=== PATIENT | female | born 1935 | race Two or more races ===

== ENCOUNTER 2018-04-24 13:12 | Outpatient (CLI) | payer MEDICARE, BC | END 2018-04-24 23:59 | disposition home health service (06) | LOC: WOU 13:12 | PROVIDERS: ATTEND Podiatrist Foot & Ankle Surgery | DX: L89.894 Pressure ulcer of other site, stage 4 (principal); L89.613 Pressure ulcer of right heel, stage 3; Z87.891 Personal history of nicotine dependence; G35 Multiple sclerosis; Z79.899 Other long term (current) drug therapy; M79.671 Pain in right foot; I70.201 Unspecified atherosclerosis of native arteries of extremities, right leg | CPT/HCPCS: 11042; 11043; 87070-TC; 87186-TC; A6402; A6407; J3490; Z7610 ==

== ENCOUNTER 2018-04-30 12:21 | Outpatient (CLI) | payer MEDICARE, BC | END 2018-04-30 23:59 | disposition home or self-care (01) | LOC: WOU 12:21 | PROVIDERS: ATTEND Podiatrist Foot & Ankle Surgery | DX: I82.432 Acute embolism and thrombosis of left popliteal vein (principal); I82.442 Acute embolism and thrombosis of left tibial vein; I70.202 Unspecified atherosclerosis of native arteries of extremities, left leg | CPT/HCPCS: 93970-TC; A6402 ==

== ENCOUNTER 2018-04-30 14:18 | Emergency (ER) | payer MEDICARE, BC ==
[~2018-04-30] VITALS: Ht 152.4 cm; Wt 69.9 kg
--- NOTE | 2018-04-30 14:25 | NUR ---
BIB FAMILY SENT FROM CLINIC FOR SUBACUTE DVT ON ULTRASOUND ON L LOWER LEG. SKIN IS WARM AND NON DIAPHORETIC. PLACED ON THE MONITOR. AWAITING MD FOR EVAL.
--- NOTE | 2018-04-30 14:30 | NUR ---
DR WHITING AT BS FOR EVAL.
--- NOTE | 2018-04-30 14:41 | NUR ---
PAGED DR. MULLINS AT [phone] CALLED CELL PHONE OF DR. MULLINS AT [phone]
--- NOTE | 2018-04-30 15:00 | NUR ---
PHLEBOTIMIST AT FOR BLOOD DRAW.
--- NOTE | 2018-04-30 15:05 | NUR ---
PROVIDED WARM BLANKET FOR COMFORT.
[2018-04-30 15:08] LABS: BASOPHILS # (AUTO) 0.1 /CMM (0.0-0.2); BASOPHILS % (AUTO) 1.1 % (0.0-2.0); EOSINOPHILS % (AUTO) 6.9 % (0.0-6.0); HEMATOCRIT 33 % (33-45); HEMOGLOBIN 10.9 g/dL (11.5-14.8); LYMPHOCYTES % (AUTO) 22.7 % (20.0-44.0); MEAN CORPUSCULAR HEMOGLOBIN 29 PG (26.0-33.0); MEAN CORPUSCULAR HGB CONC 33 g/dl (31.0-36.0); MEAN CORPUSCULAR VOLUME 88 fL (82-100); MONOCYTES # (AUTO) 0.4 /CMM (0.1-1.30); MONOCYTES % (AUTO) 9.5 % (2.0-12.0); NEUTROPHILS # (AUTO) 2.8 /CMM (1.8-8.9); NEUTROPHILS % (AUTO) 59.8 % (43.0-81.0); PLATELET COUNT (AUTO) 207 /CMM (150-450); RDW COEFFICIENT OF VARIATION 12.8 (11.5-15.0); RED BLOOD CELL COUNT(AUTO) 3.73 MIL/uL (4.0-5.2); WHITE BLOOD COUNT (AUTO) 4.6 K/uL (4.3-11.0)
[2018-04-30 15:19] LABS: CALCIUM, SERUM 9.1 mg/dL (8.5-10.1); CARBON DIOXIDE 26 mmol/L (21-32); CHLORIDE 100 mmol/L (98-107); CREATININE 1.2 mg/dL (0.6-1.3); GLUCOSE 92 mg/dL (74-106); POTASSIUM 4.4 mmol/L (3.5-5.1); SODIUM SERUM 135 mmol/L (136-145); UREA NITROGEN, BLOOD 20 mg/dL (7-18)
[2018-04-30 15:25] LABS: ALANINE AMINOTRANSFERASE 38 U/L (12-78); ALBUMIN 3.4 g/dL (3.4-5.0); ALKALINE PHOSPHATASE 44 U/L (46-116); ASPARTATE AMINOTRANSFERASE 33 U/L (15-37); BILIRUBIN,DIRECT 0.1 mg/dL (0.0-0.2); BILIRUBIN,TOTAL 0.2 mg/dL (0.2-1.0); TOTAL PROTEIN, SERUM 7.5 g/dL (6.4-8.2)
[2018-04-30 15:26] LABS: INR 0.97 (0.85-1.15)
--- NOTE | 2018-04-30 15:39 | NUR ---
PAGED DR. MULLINS AGAIN ON CELL PHONE
[2018-04-30] MEDS ORDERED: IV NS 0.9% 500 ML BAG IV ONE (16:00)
--- NOTE | 2018-04-30 16:22 | NUR ---
CALLED THE NURSE THAT WORKS WITH DR. MULLINS [facility] - - DR. WHITING SPEAKING WITH BLANCA
--- NOTE | 2018-04-30 17:00 | NUR ---
Patient discharged to home in stable condition. Written and verbal after care instructions given. Patient verbalizes understanding of instruction.
[2018-04-30 17:01] VITALS: BP 130/75
== END 2018-04-30 17:02 | disposition home or self-care (01) ==
LOC: ER 14:20
DX: I82.491 Acute embolism and thrombosis of other specified deep vein of right lower extremity (principal); R60.0 Localized edema
CPT/HCPCS: 36415; 71045; 80048; 80076; 85025; 85730; 99285; A4606; Z7610

== ENCOUNTER 2018-05-01 11:30 | Outpatient (CLI) | payer MEDICARE, BC | END 2018-05-01 23:59 | disposition home health service (06) | LOC: WOU 11:30 | PROVIDERS: ATTEND Podiatrist Foot & Ankle Surgery | DX: L89.894 Pressure ulcer of other site, stage 4 (principal); L89.613 Pressure ulcer of right heel, stage 3; G35 Multiple sclerosis; I70.209 Unspecified atherosclerosis of native arteries of extremities, unspecified extremity | CPT/HCPCS: 11042; 11043; A6402 ×2; J3490; Z7610 ==

== ENCOUNTER 2018-05-08 13:00 | Outpatient (CLI) | payer MEDICARE, BC | END 2018-05-08 23:59 | disposition home health service (06) | LOC: WOU 13:00 | PROVIDERS: ATTEND Podiatrist Foot & Ankle Surgery | DX: L89.894 Pressure ulcer of other site, stage 4 (principal); L89.613 Pressure ulcer of right heel, stage 3; I70.209 Unspecified atherosclerosis of native arteries of extremities, unspecified extremity; G35 Multiple sclerosis; Z87.891 Personal history of nicotine dependence | CPT/HCPCS: 11043; A6253; A6402 ×2; Z7610; G0463 ==

== ENCOUNTER 2018-05-09 11:55 | Outpatient (CLI) | payer MEDICARE, BC | END 2018-05-09 23:59 | disposition home or self-care (01) | LOC: MRI 11:55 | PROVIDERS: ATTEND Podiatrist Foot & Ankle Surgery | DX: L97.519 Non-pressure chronic ulcer of other part of right foot with unspecified severity (principal); R60.0 Localized edema; M19.071 Primary osteoarthritis, right ankle and foot | CPT/HCPCS: 73718-TC ==

== ENCOUNTER 2018-05-13 14:00 | Outpatient (CLI) | payer MEDICARE, BC | END 2018-05-13 23:59 | disposition home health service (06) | LOC: VASLAB 14:00 | PROVIDERS: ATTEND Surgery Vascular Surgery | DX: I82.442 Acute embolism and thrombosis of left tibial vein (principal); G35 Multiple sclerosis; S91.301A Unspecified open wound, right foot, initial encounter; X58.XXXA Exposure to other specified factors, initial encounter; Y92.89 Other specified places as the place of occurrence of the external cause; L89.613 Pressure ulcer of right heel, stage 3; L89.894 Pressure ulcer of other site, stage 4 | CPT/HCPCS: A6253; A6402; G0463; Z7610 ==

== ENCOUNTER 2018-05-15 13:47 | Outpatient (CLI) | payer MEDICARE, BC | END 2018-05-15 23:59 | disposition home health service (06) | LOC: WOU 13:47 | PROVIDERS: ATTEND Podiatrist Foot & Ankle Surgery | DX: L89.894 Pressure ulcer of other site, stage 4 (principal); L89.613 Pressure ulcer of right heel, stage 3; I70.201 Unspecified atherosclerosis of native arteries of extremities, right leg; Z87.891 Personal history of nicotine dependence; G35 Multiple sclerosis; J45.909 Unspecified asthma, uncomplicated; Z79.01 Long term (current) use of anticoagulants | CPT/HCPCS: 11043; A6402 ×2; Z7610; A6253 ==

== ENCOUNTER 2018-05-22 13:25 | Outpatient (CLI) | payer MEDICARE, BC | END 2018-05-22 23:59 | disposition home or self-care (01) | LOC: WOU 13:25 | PROVIDERS: ATTEND Podiatrist Foot & Ankle Surgery | DX: L89.894 Pressure ulcer of other site, stage 4 (principal); L89.613 Pressure ulcer of right heel, stage 3; I70.221 Atherosclerosis of native arteries of extremities with rest pain, right leg; Z87.891 Personal history of nicotine dependence; G35 Multiple sclerosis; J45.909 Unspecified asthma, uncomplicated; Z79.01 Long term (current) use of anticoagulants | CPT/HCPCS: A6253; A6402 ×2; G0463; Z7610 ==

== ENCOUNTER 2018-05-28 13:34 | Inpatient (IN) | payer MEDICARE, BC ==
[~2018-05-28] VITALS: Ht 167.6 cm; Wt 91.2 kg
[2018-05-28] MEDS ORDERED: IBAN150T PO (15:43)
[2018-05-28] MEDS ORDERED: MELO-105 PO (15:43)
[2018-05-28] MEDS ORDERED: DIVA250T47 PO (15:43)
[2018-05-28] MEDS ORDERED: PARO10TA86 PO (15:43)
[2018-05-28] MEDS ORDERED: CLON0.5T12 PO (15:43)
[2018-05-28] MEDS ORDERED: RIVA10TA PO (15:43)
[2018-05-28 15:44] LABS: BASOPHILS # (AUTO) 0.1 /CMM (0.0-0.2); EOSINOPHILS % (AUTO) 4.1 % (0.0-6.0); HEMATOCRIT 34 % (33-45); LYMPHOCYTES % (AUTO) 29.3 % (20.0-44.0); MEAN CORPUSCULAR HGB CONC 33 g/dl (31.0-36.0); MEAN CORPUSCULAR VOLUME 88 fL (82-100); MONOCYTES # (AUTO) 0.6 /CMM (0.1-1.30); MONOCYTES % (AUTO) 9.5 % (2.0-12.0); NEUTROPHILS # (AUTO) 3.7 /CMM (1.8-8.9); NEUTROPHILS % (AUTO) 56.1 % (43.0-81.0); PLATELET COUNT (AUTO) 203 /CMM (150-450); RDW COEFFICIENT OF VARIATION 12.8 (11.5-15.0); RED BLOOD CELL COUNT(AUTO) 3.83 MIL/uL (4.0-5.2); WHITE BLOOD COUNT (AUTO) 6.7 K/uL (4.3-11.0)
[2018-05-28] MEDS ORDERED: FURO40TA5 PO (15:44)
[2018-05-28] MEDS ORDERED: CHOL20004 PO (15:44)
[2018-05-28] MEDS ORDERED: POTA8TAB3 PO (15:44)
[2018-05-28 15:56] LABS: CALCIUM, SERUM 8.2 mg/dL (8.5-10.1); CARBON DIOXIDE 27 mmol/L (21-32); CHLORIDE 106 mmol/L (98-107); CREATININE 0.6 mg/dL (0.6-1.3); GLUCOSE 93 mg/dL (74-106); POTASSIUM 4.1 mmol/L (3.5-5.1); SODIUM SERUM 139 mmol/L (136-145); UREA NITROGEN, BLOOD 21 mg/dL (7-18)
[2018-05-28 16:21] LABS: INR 0.99 (0.87-1.13)
--- NOTE | 2018-05-28 16:42 | NUR ---
CALLED NURSE SUP FOR MED/SURG BED
[2018-05-28] MEDS ORDERED: ONDANSETRON HCL/PF 4 MG/2 ML VIAL IVP PRN (17:00)
[2018-05-28] MEDS ORDERED: MAG HYDROX/AL HYDROX/SIMETH 30 ML UDC PO PRN (17:00)
[2018-05-28] MEDS ORDERED: ACETAMINOPHEN 325 MG TABLET PO PRN (17:00)
[2018-05-28] MEDS ORDERED: HYDROCODONE/APAP 5/325MG 1 EACH TABLET PO PRN (17:00)
--- NOTE | 2018-05-28 17:55 | NUR ---
Called in report to VENKATA Rodriguez medsur. All questions answered. Gave her phone nubmer for pt's dautghter.
[2018-05-28] MEDS ORDERED: MORPHINE SULFATE INJ 4 MG/ML DISP.SYRIN IV PRN (18:00)
--- NOTE | 2018-05-28 18:29 | NUR ---
Patient transferred to third floor on wheelchair accompanied by YANIV Zuñiga and daughter and caregiver. In stable condition. No respiratory distress
--- NOTE | 2018-05-28 18:35 | NUR ---
MS RN PT ADMITTED TO ROOM 315-1. RECEIVED PT FROM ER VIA WHEELCHAIR W/ DX OF NON-HEALING RIGHT FOOT ULCER. PT IS ACCOMPANIED BY DAUGHTER AND PRIVATE CAREGIVER. PT IS ALERT AND ORIENTED X3, PRIMARILY CONGOLESE SPEAKING. DENIES N/V, CHEST PAIN, SOB AT THIS TIME. BREATHING IS EVEN AND UNLABORED ON ROOM AIR. ADMISSION VS OBTAINED, PT GOWNED AND ID BAND IN PLACE. BED IS LOCKED AND IN LOWEST POSITION, SIDE RAILS UP X2, CALL LIGHT IS WITHIN REACH. PENDING ADMISSION ORDERS. WILL ENDORSE TO WOOD ROUTER HAND RN FOR CONTINUITY OF CARE.
--- NOTE | 2018-05-28 19:00 | NUR ---
MS RN RECEIVED PT IN BED. A/O X 3 WITH PERIOD OF FORGETFULNESS ADMIT TO M/S WITH DX OF NON-HEALING RIGHT FOOT ULCER. DAUGHTER AND PRIVATE CAREGIVER AT BEDSIDE. ROMANSH SPEAKING. DENIES N/V, CHEST PAIN, SOB AT THIS TIME. BREATHING IS EVEN AND UNLABORED ON ROOM AIR. CALL LIGHT IS WITHIN REACH. SAFETY MEASURES IN PLACE. WILL CONTINUE TO MONITOR.
[2018-05-28 20:00] VITALS: BP 105/65
--- NOTE | 2018-05-28 20:00 | NUR ---
NELSON HOSPITALIST SPOKE TO DR. MIKE CLARIFY DIET ORDERS PER DR. MIKE NPO EXCEPT MEDS READ BACK AND VERIFIED ORDERS NOTED AND CARRIED OUT.
[2018-05-28] MEDS: IV NS 0.9% 1,000 ML IV PRN (20:25)
[2018-05-28] MEDS: DIVALPROEX SODIUM 250 MG TABLET.DR PO SCH (20:59)
[2018-05-28] MEDS: clonazePAM 0.5 MG TABLET PO SCH (21:00)
[2018-05-29] VITALS (8 sets, daily range): BP systolic 62–132; BP diastolic 56–87
--- NOTE | 2018-05-29 06:25 | NUR ---
MS RN CLOSING NOTES ASLEEP AND EASILY AWAKEN, STABLE, NOT IN DISTRESS. TOLERATING ROOM AIR 99%, RESPIRATION EVEN AND UNLABORED. KEPT CLEAN AND DRY AND COMFORTABLE, ALL NURSING CARE RENDERED. NEEDS ATTENDED AND ANTICIPATED. GOOD SKIN CARE PROVIDED. NO COMPLAIN OF PAIN AT THIS TIME. ON LOW BED AT ALL TIMES TO ENSURE SAFETY. SAFE HAZARD FREE ENVIRONMENT PROVIDED. CALL LIGHT WITHIN EASY TO REACH. OFFLOAD BOTH HEELS AND ELBOWS, WILL ENDORSE NEXT SHIFT CONTINUITY OF CARE.
[2018-05-29 06:32] LABS: BASOPHILS % (AUTO) 0.7 % (0.0-2.0); EOSINOPHILS % (AUTO) 6.6 % (0.0-6.0); HEMATOCRIT 33 % (33-45); HEMOGLOBIN 10.7 g/dL (11.5-14.8); LYMPHOCYTES # (AUTO) 2.3 /CMM (0.8-4.8); LYMPHOCYTES % (AUTO) 42.1 % (20.0-44.0); MEAN CORPUSCULAR HGB CONC 32 g/dl (31.0-36.0); MEAN CORPUSCULAR VOLUME 91 fL (82-100); MONOCYTES # (AUTO) 0.5 /CMM (0.1-1.30); NEUTROPHILS # (AUTO) 2.2 /CMM (1.8-8.9); NEUTROPHILS % (AUTO) 40.6 % (43.0-81.0); PLATELET COUNT (AUTO) 201 /CMM (150-450); RDW COEFFICIENT OF VARIATION 13.5 (11.5-15.0); RED BLOOD CELL COUNT(AUTO) 3.65 MIL/uL (4.0-5.2); WHITE BLOOD COUNT (AUTO) 5.5 K/uL (4.3-11.0)
[2018-05-29 06:46] LABS: CALCIUM, SERUM 8.3 mg/dL (8.5-10.1); CARBON DIOXIDE 31 mmol/L (21-32); CHLORIDE 109 mmol/L (98-107); CREATININE 0.6 mg/dL (0.6-1.3); GLUCOSE 86 mg/dL (74-106); PHOSPHORUS 3.1 mg/dL (2.5-4.9); POTASSIUM 4.4 mmol/L (3.5-5.1); SODIUM SERUM 143 mmol/L (136-145); UREA NITROGEN, BLOOD 12 mg/dL (7-18)
[2018-05-29 06:48] LABS: CHOLESTEROL 162 mg/dL (<200); HDL CHOLESTEROL 44 mg/dL (40-60); LDL 102 mg/dL (0-99); TRIGLYCERIDES 100 mg/dL (30-150)
--- NOTE | 2018-05-29 07:20 | NUR ---
MS RN OPENING NOTES RECEIVED PT AWAKE IN BED IN NO ACUTE SIGNS OF DISTRESS. PRIVATE CAREGIVER AT BEDSIDE. A/O X 3-4. VERBALLY RESPONSIVE, DENIES PAIN OR ANY DISCOMFORTS AT THIS TIME. ON ROOM AIR, BREATHING EVEN AND UNLABORED. IV ACCESS ON RIGHT WRIST G#24 INTACT AND PATENT, IVF OF NS @ 75ML/HR INFUSING WELL, NO S/S OF INFILTRATIONS NOTED. BED IN LOW/LOCKED POSITION WITH SR UP X2. CALL LIGHT IS WITHIN REACH. WILL CONTINUE TO MONITOR
[2018-05-29] MEDS: PANTOPRAZOLE 40 MG VIAL IV SCH (08:24)
[2018-05-29] MEDS: CHOLECALCIFEROL 1,000 UNIT TABLET (VIT D3) PO SCH (08:24)
[2018-05-29] MEDS: DIVALPROEX SODIUM 250 MG TABLET.DR PO SCH ×2 (08:24→17:37)
[2018-05-29] MEDS: PAROXETINE HCL 10 MG TABLET PO SCH (08:25)
[2018-05-29] MEDS: IV NS 0.9% 1,000 ML IV PRN (12:24)
[2018-05-29] MEDS ORDERED: LIDOCAINE 1% INJ 50 ML MDV IJ ONE (15:28)
[2018-05-29] MEDS ORDERED: BUPIVACAINE MPF 0.5% W/EPI INJ 30 ML VIAL ONE (15:28)
[2018-05-29] MEDS ORDERED: POVIDONE-IODINE OINT 28.4 GM TUBE ONE (16:07)
--- NOTE | 2018-05-29 17:23 | NUR ---
RN NOTES PATIENT RETURNED TO UNIT ALERT AND AWAKE VIA HER BED AT 1720 S/P RIGHT FOOT WOUND CLOSURE BY DR RIOS WITH ORDERS TO RESUME PRE-OP ORDERS, NOT TO REMOVE DRESSING, ELEVATE RLE WITH 3 PILLOWS, CAM BOOT FOR RLE AND STRICT NWB ON RLE. VPT ON 02 VIA N/C AT 2LPM, TOLERATING WELL WITH SP02 OF 97%. V/S CHECKED: BP 114/87, R 18, P 66 AND T 97.9F. PT'S DRESSING ON RLE C/D/I AND ELEVATED ON 3 PILLOWS. ALL SAFETY MEASURES KEPT IN PLACE. CALL LIGHT IN REACH. PT'S DAUGHTER AND PRIVATE CAREGIVER AT BEDSIDE. WILL CONTINUE TO MONITOR.
[2018-05-29] MEDS: clonazePAM 0.5 MG TABLET PO SCH (17:38)
--- NOTE | 2018-05-29 19:25 | NUR ---
MS RN CLOSING NOTES PATIENT IN BED RESTING AT MODERATE HIGH BACKREST POSITION WITH DAUGHTER, PRIVATE CAREGIVER AND VISITORS AT BEDSIDE. A/O X 3. VERBALLY RESPONSIVE WITH PERIOD OF FORGETFULNESS NOTED DURING THE DAY. RLE ELEVATED WITH BOOT CAM ON AND ELEVATED WITH 3 PILLOWS. PT ON ROOM AIR AT THIS TIME NOW, BREATHING EVEN AND UNLABORED, NO ACUTE DISTRESS NOTED. IV ACCESS ON LEFT HAND INTACT AND PATENT, IVF OF NS @ 75ML/HR INFUSING WELL, NO S/S OF INFILTRATIONS NOTED. BED IN LOW/LOCKED POSITION WITH SR UP X2. CALL LIGHT IS WITHIN REACH. ALL NEEDS AND CARE PROVIDED WELL. ENDORSED TO MOLD WASHER NURSE FOR NIKKIE.
--- NOTE | 2018-05-29 19:30 | NUR ---
RN INITIAL NOTES: RECEIVED REPORT FROM CHARLIE HASTINGS. PT IN BED, AWAKE, A/O X4, DAUGHTER AND CAREGIVER AT BED SIDE. PT ON RA, RESPIRATION EVEN AND UNLABORED, DENIES ANY PAIN OR DISCOMFORT AT THIS TIME. S/P RIGHT FOOT EXCISIONAL WOUND DEBRIDEMENT WITH REMOVAL OF SOFT TISSUE TODAY 05/29/18, DRESSING C/D/I, NO ACTIVE BLEEDING NOTED. RIGHT LEG ELEVATED ON 3PILLOWS, WITH CAM BOOTS IN PLACED. DISCUSSED PLAN OF CARE TO THE PT AND FAMILY. IV ACCESS ON LEFT HAND G 20 PATENT AND FLUSHING WELL, ON HL. PT VOIDED USING DIAPER, STATED SHE'S MORE COMFORTABLE, THAN BED AYOUB, TRANSLATED BY DAUGHTER. SAFETY PRECAUTIONS FOR FALL INITIATED, CALL LIGHT IN REACH, WILL CONTINUE MONITORING PT.
--- NOTE | 2018-05-29 20:00 | NUR ---
RN NOTES: S/P RIGHT FOOT EXCISIONAL WOUND DEBRIDEMENT WITH REMOVAL OF SOFT TISSUE ON 05/29/18, UNABLE TO MEASURE AND UNABLE TO REASSESS THE WOUND DUE TO PRESENCE OF SURGICAL DRESSING. PER DR RIOS NOT TO REMOVE THE DRESSING, CAM BOOTS IN PLACED ORDERED BY MD, DRESSING C/D/I, NO ACTIVE BLEEDING NOTED, RIGHT LEG OFFLOADED ON 3PILLOWS. PT ABLE TO MOVE AND WIGGLE TOES, WITH GOOD CAPILLARY REFILL NOTED, DENIES ANY NUMBNESS OR TINGLING SENSATION ON RLE. PRIVATE CAREGIVER AT BED SIDE, DAUGHTER AT BED SIDE, HELPING WITH TRANSLATION.
--- NOTE | 2018-05-29 22:00 | NUR ---
rn notes: offered pain medication, but pt refused, stated she doesnt have any pain at this time
--- NOTE | 2018-05-30 01:23 | NUR ---
rn notes: seen pt sleeping at this time. appears comfortable.
[2018-05-30] MEDS: IV NS 0.9% 1,000 ML IV PRN (02:43)
--- NOTE | 2018-05-30 03:32 | NUR ---
bladder scan: performed bladder scan as pt has no urine output since 0000mn. pt denies any abdominal discomfort, no abdominal distention noted, denies any pain upon palpation of abdomen and bladder area. pt's caregiver at bed side helping in translation. bladder scan obtained highest is 58ml. encourage pt to increase fluid intake.
--- NOTE | 2018-05-30 06:03 | NUR ---
BLADDER SCAN: PERFORMED ANOTHER BLADDER SCAN AT THIS TIME, PT VOIDED IN THE DIAPER, A LITTLE MORE THAN WHAT SHE VOIDED EARLIER. BLADDER SCAN PERFORMED OBTAINED RESULT OF 38, WITNESS BY ANOTHER RN HERBERT. INFORMED TIP FIXER GABO. PT DENIES ANY PAIN UPON PALPATION OF THE ABDOMEN AND BLADDER AREA, NO ABDOMINAL DISTENTION NOTED. ENCOURAGED PT TO DRINK LOTS OF FLUIDS.
--- NOTE | 2018-05-30 06:45 | NUR ---
rn closing notes; pt in bed, awake, remains a/o x3, ion ra, denies any pain at this time, rle remains offloaded on 3pillows, surgical dressing remains c/d/i, cam boots in placed. iv access remains patent and flushing well, infusing with ns at 75ml/hr. for pt eval today. vs remains stable, needs attended. safety precautions for fall remains engaged, call light in reach, will endorse to day rn for continuity of care.
--- NOTE | 2018-05-30 07:20 | NUR ---
MS RN OPENING NOTES PATIENT AWAKE IN BED IN NO ACUTE SIGNS OF DISTRESS. HOB ELEVATED. PRIVATE CAREGIVER AT BEDSIDE. A/O X 3. VERBALLY RESPONSIVE, DENIES PAIN OR ANY DISCOMFORTS AT THIS TIME. RLE WITH CAM BOOT ON AND OFFLOADED WITH 3 PILLOWS. ON ROOM AIR, BREATHING EVEN AND UNLABORED. IV ACCESS ON LEFT HAND G#20 INTACT AND PATENT, IVF OF NS @ 75ML/HR INFUSING WELL, NO S/S OF INFILTRATIONS NOTED. BED IN LOW/LOCKED POSITION WITH SR UP X2. CALL LIGHT IS WITHIN REACH. WILL CONTINUE TO MONITOR
[2018-05-30 08:00] VITALS: BP 116/65
[2018-05-30] MEDS: DIVALPROEX SODIUM 250 MG TABLET.DR PO SCH ×2 (08:12→16:25)
[2018-05-30] MEDS: PAROXETINE HCL 10 MG TABLET PO SCH (08:12)
[2018-05-30] MEDS: PANTOPRAZOLE 40 MG VIAL IV SCH (08:12)
[2018-05-30] MEDS: CHOLECALCIFEROL 1,000 UNIT TABLET (VIT D3) PO SCH (08:12)
[2018-05-30 15:05] VITALS: BP 122/68
[2018-05-30 16:00] VITALS: BP 122/65
--- NOTE | 2018-05-30 17:58 | NUR ---
RN DISCHARGED NOTES PATIENT DISCHARGED HOME IN STABLE CONDITION. A/O X3, SAME ABLE TO MAKE NEEDS KNOWN WITH NO COMPLAINED VOICED DURING THE DAY. ALL NEEDS AND CARE PROVIDED WELL. V/S TAKEN AND RECORDED. ALL BELONGINGS ACCOUNTED FOR AND SIGNED BELONGINGS LIST BY PT'S DAUGHTER. IV ACCESS REMOVED WITH NO BLEEDING NOTED. ARM BAND REMOVED. HEALTH TEACHINGS GIVEN TO PT AND DAUGHTER, BOTH VERBALIZED UNDERSTANDING. PRESCRIPTION OF ORAL ABT HANDED TO PT'S DAUGHTER. PT LEFT UNIT IN NO ACUTE SIGNS OF DISTRESS AT 1730 VIA WHEELCHAIR ACCOMPANIED BY ABELARDO ROSAS, PT'S DAUGHTER AND CAREGIVER. CHARGE NURSE AWARE OF PT'S DISCHARGE.
== END 2018-05-30 17:30 | disposition home or self-care (01) | DRG 592 ==
LOC: ER 13:38 → MED 17:31
PROVIDERS: ADMIT Nurse Practitioner Acute Care; ATTEND Nurse Practitioner Acute Care
DX: L89.894 Pressure ulcer of other site, stage 4 (principal); N17.0 Acute kidney failure with tubular necrosis; D68.59 Other primary thrombophilia; Z79.899 Other long term (current) drug therapy; L97.519 Non-pressure chronic ulcer of other part of right foot with unspecified severity; G35 Multiple sclerosis; N18.9 Chronic kidney disease, unspecified; Z86.718 Personal history of other venous thrombosis and embolism; Z79.01 Long term (current) use of anticoagulants; Z87.891 Personal history of nicotine dependence; Z74.09 Other reduced mobility; G47.00 Insomnia, unspecified; F32.9 Major depressive disorder, single episode, unspecified; I70.235 Atherosclerosis of native arteries of right leg with ulceration of other part of foot
CPT/HCPCS: 36415; 71045-TC; 80048-TC; 80061-TC; 83735-TC; 84100-TC; 85025-TC; 85730-TC; 87070-TC; 87081-TC; 97112-TC; 97530-TC; A4606; A6402; C9113; J0690; J3490; J7030; Z7610

== ENCOUNTER 2018-06-05 13:20 | Outpatient (CLI) | payer MEDICARE, BC ==
[~2018-06-05 13:20] MED LIST: CHOL20004 PO; CLON0.5T12 PO; DIVA250T47 PO; FURO40TA5 PO; IBAN150T PO; MELO-105 PO; PARO10TA86 PO; POTA8TAB3 PO; RIVA10TA PO
== END 2018-06-05 23:59 | disposition home health service (06) ==
LOC: WOU 13:20
PROVIDERS: ATTEND Podiatrist Foot & Ankle Surgery
DX: Z48.817 Encounter for surgical aftercare following surgery on the skin and subcutaneous tissue (principal); L89.613 Pressure ulcer of right heel, stage 3; I70.221 Atherosclerosis of native arteries of extremities with rest pain, right leg
CPT/HCPCS: A6253; A6402; G0463; Z7610

== ENCOUNTER 2018-06-12 12:42 | Outpatient (CLI) | payer MEDICARE, BC | END 2018-06-12 23:59 | disposition home health service (06) | LOC: WOU 12:42 | PROVIDERS: ATTEND Podiatrist Foot & Ankle Surgery | DX: Z48.817 Encounter for surgical aftercare following surgery on the skin and subcutaneous tissue (principal); L89.613 Pressure ulcer of right heel, stage 3; I70.221 Atherosclerosis of native arteries of extremities with rest pain, right leg; Z87.891 Personal history of nicotine dependence; G35 Multiple sclerosis; J45.909 Unspecified asthma, uncomplicated; Z79.01 Long term (current) use of anticoagulants; Z79.899 Other long term (current) drug therapy | CPT/HCPCS: A6253; A6402; G0463; Z7610 ==

== ENCOUNTER 2018-08-28 12:30 | Outpatient (CLI) | payer MEDICARE, BC ==
[~2018-08-28 12:30] MED LIST changes: -IBAN150T PO; +IBAN150T16 PO
== END 2018-08-28 23:59 | disposition home health service (06) ==
LOC: WOU 12:30
PROVIDERS: ATTEND Podiatrist Foot & Ankle Surgery
DX: T81.31XD Disruption of external operation (surgical) wound, not elsewhere classified, subsequent encounter (principal); I70.234 Atherosclerosis of native arteries of right leg with ulceration of heel and midfoot; L97.418 Non-pressure chronic ulcer of right heel and midfoot with other specified severity; G35 Multiple sclerosis; Z87.891 Personal history of nicotine dependence; J45.909 Unspecified asthma, uncomplicated; Z79.01 Long term (current) use of anticoagulants; Z79.899 Other long term (current) drug therapy; M79.671 Pain in right foot
CPT/HCPCS: A6402; G0463

== ENCOUNTER 2018-09-29 13:50 | Outpatient (CLI) | payer MEDICARE, BC | END 2018-09-29 23:59 | disposition home health service (06) | LOC: WOU 13:50 | PROVIDERS: ATTEND Surgery | DX: L89.153 Pressure ulcer of sacral region, stage 3 (principal); L89.313 Pressure ulcer of right buttock, stage 3; L89.323 Pressure ulcer of left buttock, stage 3; S71.111D Laceration without foreign body, right thigh, subsequent encounter; R26.2 Difficulty in walking, not elsewhere classified; E66.9 Obesity, unspecified; Z68.32 Body mass index [BMI] 32.0-32.9, adult; X58.XXXD Exposure to other specified factors, subsequent encounter; Z87.891 Personal history of nicotine dependence | CPT/HCPCS: 11042; A6402 ==

== ENCOUNTER 2018-10-13 14:05 | Outpatient (CLI) | payer MEDICARE, BC | END 2018-10-13 23:59 | disposition home health service (06) | LOC: WOU 14:05 | PROVIDERS: ATTEND Surgery | DX: L89.153 Pressure ulcer of sacral region, stage 3 (principal); L89.313 Pressure ulcer of right buttock, stage 3; L89.610 Pressure ulcer of right heel, unstageable; L89.620 Pressure ulcer of left heel, unstageable; I70.235 Atherosclerosis of native arteries of right leg with ulceration of other part of foot; M79.671 Pain in right foot; R26.2 Difficulty in walking, not elsewhere classified; E46 Unspecified protein-calorie malnutrition; E66.9 Obesity, unspecified; Z68.32 Body mass index [BMI] 32.0-32.9, adult | CPT/HCPCS: 11042; A6402; G0463 ==

== ENCOUNTER 2018-10-17 13:36 | Outpatient (CLI) | payer MEDICARE, BC | END 2018-10-17 23:59 | disposition home or self-care (01) | LOC: CARD 13:36 | PROVIDERS: ATTEND Podiatrist Foot & Ankle Surgery | DX: I82.413 Acute embolism and thrombosis of femoral vein, bilateral (principal) | CPT/HCPCS: 93970-TC ==

== ENCOUNTER 2018-11-06 13:30 | Outpatient (CLI) | payer MEDICARE, BC | END 2018-11-06 23:59 | disposition home health service (06) | LOC: WOU 13:30 | PROVIDERS: ATTEND Surgery | DX: L98.9 Disorder of the skin and subcutaneous tissue, unspecified (principal); G35 Multiple sclerosis; Z74.09 Other reduced mobility; E46 Unspecified protein-calorie malnutrition; Z68.32 Body mass index [BMI] 32.0-32.9, adult; E66.9 Obesity, unspecified; Z71.3 Dietary counseling and surveillance; Z87.891 Personal history of nicotine dependence; J45.909 Unspecified asthma, uncomplicated | CPT/HCPCS: G0463 ==

== ENCOUNTER 2018-12-09 14:20 | Outpatient (CLI) | payer MEDICARE, BC | END 2018-12-09 23:59 | disposition home or self-care (01) | LOC: VASLAB 14:20 | PROVIDERS: ATTEND Surgery Vascular Surgery | DX: I82.413 Acute embolism and thrombosis of femoral vein, bilateral (principal); I82.432 Acute embolism and thrombosis of left popliteal vein; Z79.01 Long term (current) use of anticoagulants; G35 Multiple sclerosis; Z99.3 Dependence on wheelchair | CPT/HCPCS: G0463 ==

== ENCOUNTER 2018-12-18 12:35 | Outpatient (CLI) | payer MEDICARE, BC | END 2018-12-18 23:59 | disposition home health service (06) | LOC: WOU 12:35 | PROVIDERS: ATTEND Surgery | DX: L98.8 Other specified disorders of the skin and subcutaneous tissue (principal); E66.9 Obesity, unspecified; Z68.32 Body mass index [BMI] 32.0-32.9, adult; Z74.09 Other reduced mobility; E46 Unspecified protein-calorie malnutrition; I70.235 Atherosclerosis of native arteries of right leg with ulceration of other part of foot; L97.519 Non-pressure chronic ulcer of other part of right foot with unspecified severity; G35 Multiple sclerosis | CPT/HCPCS: G0463 ==

== ENCOUNTER 2018-12-30 14:28 | Outpatient (CLI) | payer MEDICARE, BC ==
[2018-12-30] MEDS ORDERED: AMOX1TAB15 PO (20:52)
[2018-12-30] MEDS ORDERED: DONE5TAB7 PO (20:52)
[2018-12-30] MEDS ORDERED: MULT-1160 PO (20:52)
[2018-12-30] MEDS ORDERED: BACL20TA PO (20:52)
[2018-12-30] MEDS ORDERED: APIX5TAB4 PO (20:52)
== END 2018-12-30 23:59 | disposition home or self-care (01) ==
LOC: CARD 14:28
PROVIDERS: ATTEND Surgery Vascular Surgery
DX: I82.413 Acute embolism and thrombosis of femoral vein, bilateral (principal); I82.432 Acute embolism and thrombosis of left popliteal vein
CPT/HCPCS: 93970-TC

== ENCOUNTER 2018-12-30 19:04 | Inpatient (IN) | payer MEDICARE, BC ==
[~2018-12-30] VITALS: Ht 167.6 cm; Wt 81.6 kg
--- NOTE | 2018-12-30 19:30 | NUR ---
BIB FAMILY FROM HOME. PT WAS HERE AT THE HOSPITAL EARLIER TODAY FOR AN ULTRASOUND OF BILAT LEGS TO RULE OUT DVT. PT WENT HOME AND GOT CALLED BACK AFTER US RESULTS. PT HAS BILATERAL R & L FEMORAL DVT. PT PRESENT AAOX4. NAD. LUXEMBOURGISH SPEAKING ONLY, WITH FAMILY AT BEDSIDE TO TRANSLATE. W/C BOUND FOR 12 YRS D/T MS. MARQUEZ HAD HX OF DVT IN THE PAST THIS IS THE 4TH TIME DX WITH DVT. SHE HAS BILAT LOWER LEG EDEMA +2 W/ PAIN. WARM AND DRY TO TOUCH. PT PLACED ON MONITOR W/ PULSE OX.
[2018-12-30 19:54] LABS: BASOPHILS % (AUTO) 0.6 % (0.0-2.0); EOSINOPHILS % (AUTO) 3.2 % (0.0-6.0); HEMATOCRIT 34 % (33-45); HEMOGLOBIN 11.2 g/dL (11.5-14.8); LYMPHOCYTES % (AUTO) 31.1 % (20.0-44.0); MEAN CORPUSCULAR HGB CONC 33 g/dl (31.0-36.0); MEAN CORPUSCULAR VOLUME 89 fL (82-100); MONOCYTES # (AUTO) 0.5 /CMM (0.1-1.30); MONOCYTES % (AUTO) 7.8 % (2.0-12.0); NEUTROPHILS # (AUTO) 3.6 /CMM (1.8-8.9); NEUTROPHILS % (AUTO) 57.3 % (43.0-81.0); PLATELET COUNT (AUTO) 256 /CMM (150-450); RED BLOOD CELL COUNT(AUTO) 3.84 MIL/uL (4.0-5.2); WHITE BLOOD COUNT (AUTO) 6.4 K/uL (4.3-11.0)
[2018-12-30 20:04] LABS: CARBON DIOXIDE 36 mmol/L (21-32); CHLORIDE 105 mmol/L (98-107); CREATININE 0.6 mg/dL (0.6-1.3); GLUCOSE 99 mg/dL (74-106); POTASSIUM 3.7 mmol/L (3.5-5.1); SODIUM SERUM 142 mmol/L (136-145); UREA NITROGEN, BLOOD 17 mg/dL (7-18)
[2018-12-30 20:10] LABS: ALANINE AMINOTRANSFERASE 17 U/L (12-78); ALBUMIN 3.1 g/dL (3.4-5.0); ALKALINE PHOSPHATASE 132 U/L (46-116); ASPARTATE AMINOTRANSFERASE 15 U/L (15-37); BILIRUBIN,DIRECT 0.1 mg/dL (0.0-0.2); BILIRUBIN,TOTAL 0.3 mg/dL (0.2-1.0); TOTAL PROTEIN, SERUM 7.4 g/dL (6.4-8.2)
--- NOTE | 2018-12-30 20:20 | NUR ---
PT GOING TO 311-2.
--- NOTE | 2018-12-30 20:39 | NUR ---
REPORT GIVEN TO VENKATA KEY. GOING TO 311-2
--- NOTE | 2018-12-30 20:41 | NUR ---
PT WAS CLEANED AND NEW DIAPER APPLIED. SM WOUND ON COCCYX WITH GRANULATION TISSUE NOTED. BILATERAL HEELS HAVE SKIN PEELING OFF. BILATERAL HEELS ARE FLOATED WITH A PILLOW.
[2018-12-30] MEDS ORDERED: BACL20TA PO (20:52)
[2018-12-30] MEDS ORDERED: APIX5TAB4 PO (20:52)
[2018-12-30] MEDS ORDERED: AMOX1TAB15 PO (20:52)
[2018-12-30] MEDS ORDERED: MULT-1160 PO (20:52)
[2018-12-30] MEDS ORDERED: DONE5TAB7 PO (20:52)
--- NOTE | 2018-12-30 21:14 | NUR ---
PT SENT TO MED SURG WITH TECH.
[2018-12-30 21:15] VITALS: BP 136/76
--- NOTE | 2018-12-30 21:15 | NUR ---
MS RN NOTES Admitted an 83YO female from home for bilateral lower extremity DVT. Patient came to unit via gurney, accompanied by family. Patient is alert, oriented x 4, cape verdean speaking. Breathing even and unlabored. Not in any distress. As per daughter, patient does not smoke but drinks wine occasionally. Skin assessment done; noted bilateral lower extremity edema, redness and peeling of bilateral heels and wound on coccyx. Wound care consult done. Belongings list done. Oriented to call guillaume- placed within easy reach. Bed in low, locked position. Will continue to monitor accordingly
[2018-12-30] MEDS ORDERED: Z GUARD REMEDY 2 OZ OINT TP PRN (22:30)
[2018-12-30] MEDS ORDERED: ONDANSETRON HCL/PF 4 MG/2 ML VIAL IVP PRN (22:30)
[2018-12-30] MEDS ORDERED: MAGNESIUM HYDROXIDE 30 ML UDC PO PRN (22:30)
[2018-12-30] MEDS ORDERED: HYDROCODONE/APAP 5/325MG 1 EACH TABLET PO PRN (22:30)
[2018-12-30] MEDS ORDERED: ZOLPIDEM TARTRATE 5 MG TABLET PO PRN (22:30)
[2018-12-30] MEDS ORDERED: ACETAMINOPHEN 325 MG TABLET PO PRN (22:30)
[2018-12-30] MEDS ORDERED: MAG HYDROX/AL HYDROX/SIMETH 30 ML UDC PO PRN (22:30)
[2018-12-30] MEDS: IV NS 0.9% 1,000 ML IV PRN (22:56)
--- NOTE | 2018-12-31 03:00 | NUR ---
RN NOTES Per RETORT LOADER Augusto Goff, continue home meds. Home meds list faxed to pharmacy
[2018-12-31 07:21] LABS: BASOPHILS % (AUTO) 0.8 % (0.0-2.0); EOSINOPHILS % (AUTO) 5.4 % (0.0-6.0); HEMATOCRIT 31 % (33-45); HEMOGLOBIN 10.4 g/dL (11.5-14.8); LYMPHOCYTES # (AUTO) 2.1 /CMM (0.8-4.8); LYMPHOCYTES % (AUTO) 39.6 % (20.0-44.0); MEAN CORPUSCULAR HGB CONC 34 g/dl (31.0-36.0); MEAN CORPUSCULAR VOLUME 88 fL (82-100); MONOCYTES # (AUTO) 0.5 /CMM (0.1-1.30); MONOCYTES % (AUTO) 8.9 % (2.0-12.0); NEUTROPHILS # (AUTO) 2.4 /CMM (1.8-8.9); NEUTROPHILS % (AUTO) 45.3 % (43.0-81.0); PLATELET COUNT (AUTO) 221 /CMM (150-450); RED BLOOD CELL COUNT(AUTO) 3.52 MIL/uL (4.0-5.2); WHITE BLOOD COUNT (AUTO) 5.2 K/uL (4.3-11.0)
[2018-12-31 07:30] LABS: ALANINE AMINOTRANSFERASE 13 U/L (12-78); ALBUMIN 2.6 g/dL (3.4-5.0); ALKALINE PHOSPHATASE 105 U/L (46-116); ASPARTATE AMINOTRANSFERASE 13 U/L (15-37); BILIRUBIN,TOTAL 0.3 mg/dL (0.2-1.0); CALCIUM, SERUM 8.7 mg/dL (8.5-10.1); CARBON DIOXIDE 30 mmol/L (21-32); CHLORIDE 106 mmol/L (98-107); CREATININE 0.5 mg/dL (0.6-1.3); GLUCOSE 89 mg/dL (74-106); MAGNESIUM 1.9 mg/dL (1.8-2.4); PHOSPHORUS 3.2 mg/dL (2.5-4.9); POTASSIUM 3.5 mmol/L (3.5-5.1); SODIUM SERUM 141 mmol/L (136-145); TOTAL PROTEIN, SERUM 6.1 g/dL (6.4-8.2); UREA NITROGEN, BLOOD 16 mg/dL (7-18)
--- NOTE | 2018-12-31 07:30 | NUR ---
RECEIVED PT. THIS AM ALERT AND ORIENTED X4.ALBANIAN SPEAKING.
--- NOTE | 2018-12-31 07:37 | NUR ---
MS RN CLOSING NOTES Patient in bed, alert, oriented x 4. Yi speaking, caregiver at bedside. Breathing even and unlabored. Not in any distress. Peripheral IV infusing at 75mL/hr. All needs attended and met. Safety measures in place. Endorsed NIKKIE to AM RN
[2018-12-31 07:39] LABS: CHOLESTEROL 162 mg/dL (<200); HDL CHOLESTEROL 48 mg/dL (40-60); LDL 97 mg/dL (0-99); THYROID STIMULATING HORMONE 4.534 uIU/mL (0.358-3.74); TRIGLYCERIDES 73 mg/dL (30-150)
[2018-12-31 08:00] VITALS: BP 131/65
[2018-12-31] MEDS ORDERED: BACLOFEN (10 MG) 10 MG TABLET PO PRN (08:30)
[2018-12-31] MEDS ORDERED: clonazePAM 0.5 MG TABLET PO PRN (08:30)
[2018-12-31] MEDS: PANTOPRAZOLE 40 MG TABLET.DR PO SCH (08:41)
[2018-12-31] MEDS: ENOXAPARIN SODIUM 80 MG/0.8 ML DISP.SYRIN SQ SCH ×2 (08:56→21:01)
[2018-12-31] MEDS ORDERED: APIXABAN 5 MG TABLET PO SCH (09:00)
[2018-12-31] MEDS: PAROXETINE HCL 10 MG TABLET PO SCH (09:01)
[2018-12-31] MEDS: CHOLECALCIFEROL 1,000 UNIT TABLET (VIT D3) PO SCH (09:01)
[2018-12-31] MEDS: MULTIVITAMINS,THERAGRAN 1 UDTAB TABLET PO SCH (09:01)
[2018-12-31] MEDS: DIVALPROEX SODIUM 125 MG TABLET.DR PO SCH ×2 (09:02→20:59)
[2018-12-31] MEDS: DONEPEZIL 5 MG TABLET PO SCH (09:02)
--- NOTE | 2018-12-31 09:37 | NUR ---
WOUND CARE CONSULT: PT BEING SEEN BY DR HERNANDEZ AND PER DR HERNANDEZ, PT IS FOLLOWED BY DR LYNCH FOR SACRAL WOUND/ISSUE. DEFER TO PODIATRY AND PLASTIC SURGERY TEAMS FOR WOUND TREATMENT PLAN. PT ON [place] ISOFLEX LOW AIRLOSS BED. CURRENT SUZIE SCORE IS 14. WILL SEE PRN. ALL SKIN PROTECTION RECOMMENDATIONS DISCUSSED WITH NURSING STAFF.
--- NOTE | 2018-12-31 10:00 | NUR ---
FAMILY IN TO VISIT.Usman RODAS KIOSK SALES REPRESENTATIVE IN ORDERS GIVEN.
[2018-12-31] MEDS ORDERED: FUROSEMIDE 40 MG TABLET PO SCH (12:00)
[2018-12-31] MEDS ORDERED: POTASSIUM CHLORIDE 10 MEQ TABLET.SA PO SCH (12:00)
[2018-12-31 12:30] VITALS: BP 141/64
[2018-12-31] MEDS: AMOX/CLAVULANATE 250 MG TABLET PO SCH ×2 (12:31→20:59)
[2018-12-31] MEDS: IV NS 0.9% 1,000 ML IV PRN (13:25)
[2018-12-31 16:00] VITALS: BP 114/63
--- NOTE | 2018-12-31 17:00 | NUR ---
DR. RUSSELL IN TO SEE PT.ORDERS GIVEN.
--- NOTE | 2018-12-31 19:00 | NUR ---
DR. CROUCH IN TO SEE PT.FAMILY AT BEDSIDE.
--- NOTE | 2018-12-31 19:30 | NUR ---
RN NOTES RECEIVED PT. AWAKE ON BED, A/OX4, PAKISTANI SPEAKING, DAUGHTER AT BEDSIDE, DENIES PAIN, NO SOB, CALL LIGHT WITHIN REACH, [id number], CONTINUE TO MONITOR
[2018-12-31 20:00] VITALS: BP 133/65
--- NOTE | 2018-12-31 22:03 | NUR ---
RN NOTES PER PT'S DAUGHTER PT. IS TAKING CLONAZEPAM FOR SLEEPING.. CLONAZEPAM 0.5MG PO GIVEN ORDERED, V/S STABLE
[2019-01-01] MEDS: IV NS 0.9% 1,000 ML IV PRN (02:26)
--- NOTE | 2019-01-01 06:32 | NUR ---
RN NOTES AWAKE, DENIES PAIN, NO SOB, MORNING CARE RENDERED, CALL LIGHT WITHIN REACH, SIDERAILSUPX2, PT. NEEDS ATTENDED
[2019-01-01 08:00] VITALS: BP 129/58
[2019-01-01] MEDS: PAROXETINE HCL 10 MG TABLET PO SCH (08:31)
[2019-01-01] MEDS: MULTIVITAMINS,THERAGRAN 1 UDTAB TABLET PO SCH (08:31)
[2019-01-01] MEDS: CHOLECALCIFEROL 1,000 UNIT TABLET (VIT D3) PO SCH (08:31)
[2019-01-01] MEDS: PANTOPRAZOLE 40 MG TABLET.DR PO SCH (08:31)
[2019-01-01] MEDS: DONEPEZIL 5 MG TABLET PO SCH (08:31)
[2019-01-01] MEDS: DIVALPROEX SODIUM 125 MG TABLET.DR PO SCH (08:32)
[2019-01-01] MEDS: ENOXAPARIN SODIUM 80 MG/0.8 ML DISP.SYRIN SQ SCH (08:37)
--- NOTE | 2019-01-01 09:19 | NUR ---
MS RN ASSUMPTION OF CARE ASSUMED CARE OF PT FROM VENKATA BOYD. PT IS A/OX4, PRIMARILY UKRAINIAN SPEAKING WITH FAMILY AT THE BEDSIDE. NO ACUTE DISTRESS NOTED, BREATHING IS EVEN AND UNLABORED ON ROOM AIR. LEFT WRIST #20G IV IS INFUSING ORDERED WITHOUT REDNESS OR SWELLING. ALL NEEDS ATTENDED TO. PT IS SET FOR D/C TODAY. BED IS LOCKED AND IN LOWEST POSITION, SIDE RAILS UP X2, BED ALARM ON, CALL LIGHT AND POSSESSIONS WITHIN REACH.
[2019-01-01] MEDS: AMOX/CLAVULANATE 250 MG TABLET PO SCH (09:52)
--- NOTE | 2019-01-01 13:30 | NUR ---
MS RN PT DISCHARGED PT DISCHARGED HOME WITH HOME HEALTH IN MEDICALLY STABLE CONDITION. PT IS A/O X4, PRIMARILY SWEDISH SPEAKING, DENIES CHEST PAIN, SOB, N/V, BREATHING IS EVEN AND UNLABORED ON ROOM AIR. LEFT WRIST PERIPHERAL IV REMOVED WITH CATHETER TIP INTACT. WOUND DOCUMENTATION COMPLETED PER PROTOCOL. ADLS AND WOUND CARE PROVIDED PRIOR TO D/C. DISCUSSED DISCHARGE EDUCATION AND PROVIDED PAPERWORK WITH VITO LOPEZ AT THE BEDSIDE. DISCUSSED DR RECOMMENDATIONS OF FOLLOWING UP WITH PRIMARY CARE PROVIDER WITHIN 1 WEEK, TO CONTINUE ELIQUIS BID, AND INFORMED TO CALL 911 OR RETURN TO THE NEAREST ER FOR CHEST PAIN, SOB, UNILATERAL CALF SWELLING, TEMPERATURE THAT DOES NOT GO DOWN WITH TYLENOL ADMINISTRATION OR REOCCURRENCE OF CHIEF COMPLAINT. PER DAUGHTER JOHN THEY HAVE ELIQUIS MEDICATION AVAILABLE AT HOME. DISCUSSED MEDICATION SAFELY OF A PATIENT TAKING BLOOD THINNERS. DAUGHTER VERBALIZED UNDERSTANDING AND AGREEMENT. ALL BELONGINGS ACCOUNTED FOR AND LIST SIGNED AND PLACED IN CHART. THE NURSE TOOL GRINDER OPERATOR SURFACE ACCOMPANIED THE PT AND FAMILY TO THE MAIN LOBBY WITHOUT INCIDENT.
[2019-03-25] MEDS ORDERED: LEVO500T2 PO (14:21)
== END 2019-01-01 13:45 | disposition home health service (06) | DRG 299 ==
LOC: ER 19:06 → MED 20:23
PROVIDERS: ADMIT Hospitalist; ATTEND Nurse Practitioner Acute Care
DX: I82.413 Acute embolism and thrombosis of femoral vein, bilateral (principal); L89.154 Pressure ulcer of sacral region, stage 4; L89.153 Pressure ulcer of sacral region, stage 3; E44.1 Mild protein-calorie malnutrition; D68.59 Other primary thrombophilia; I82.432 Acute embolism and thrombosis of left popliteal vein; R60.9 Edema, unspecified; G35 Multiple sclerosis; F32.9 Major depressive disorder, single episode, unspecified; E66.9 Obesity, unspecified; F41.9 Anxiety disorder, unspecified; Z86.718 Personal history of other venous thrombosis and embolism; Z87.891 Personal history of nicotine dependence; E88.09 Other disorders of plasma-protein metabolism, not elsewhere classified; Z68.29 Body mass index [BMI] 29.0-29.9, adult; L89.620 Pressure ulcer of left heel, unstageable; L89.610 Pressure ulcer of right heel, unstageable; Z79.01 Long term (current) use of anticoagulants
CPT/HCPCS: 36415; 80048-TC; 80053-TC; 80061-TC; 80076-TC; 83735-TC; 84100-TC; 84443-TC; 85025-TC; 85730-TC; 87081-TC; 93970-TC; G0378; J1650; J7030

== ENCOUNTER 2019-01-08 12:30 | Outpatient (CLI) | payer MEDICARE, BC ==
[~2019-01-08 12:30] MED LIST changes: +AMOX1TAB15 PO; +APIX5TAB4 PO; +BACL20TA PO; +DONE5TAB7 PO; +MULT-1160 PO
== END 2019-01-08 23:59 | disposition home health service (06) ==
LOC: WOU 12:30
PROVIDERS: ATTEND Surgery
DX: L89.153 Pressure ulcer of sacral region, stage 3 (principal); L89.323 Pressure ulcer of left buttock, stage 3; E66.9 Obesity, unspecified; Z68.32 Body mass index [BMI] 32.0-32.9, adult; R26.2 Difficulty in walking, not elsewhere classified; L22 Diaper dermatitis; L90.5 Scar conditions and fibrosis of skin; G35 Multiple sclerosis; T81.30XA Disruption of wound, unspecified, initial encounter
CPT/HCPCS: A6402; G0463

== ENCOUNTER 2019-03-09 13:15 | Outpatient (CLI) | payer MEDICARE, BC | END 2019-03-09 23:59 | disposition home health service (06) | LOC: WOU 13:15 | PROVIDERS: ATTEND Podiatrist Foot & Ankle Surgery | DX: S81.812A Laceration without foreign body, left lower leg, initial encounter (principal); X58.XXXA Exposure to other specified factors, initial encounter; Y92.89 Other specified places as the place of occurrence of the external cause; R26.2 Difficulty in walking, not elsewhere classified; E66.9 Obesity, unspecified; Z68.32 Body mass index [BMI] 32.0-32.9, adult; G35 Multiple sclerosis; L89.153 Pressure ulcer of sacral region, stage 3; L89.323 Pressure ulcer of left buttock, stage 3; L89.610 Pressure ulcer of right heel, unstageable; L89.620 Pressure ulcer of left heel, unstageable; Z79.01 Long term (current) use of anticoagulants | CPT/HCPCS: 11042; A6402 ==

== ENCOUNTER 2019-03-16 13:10 | Outpatient (CLI) | payer MEDICARE, BC | END 2019-03-16 23:59 | disposition home health service (06) | LOC: WOU 13:10 | PROVIDERS: ATTEND Podiatrist Foot & Ankle Surgery | DX: I87.313 Chronic venous hypertension (idiopathic) with ulcer of bilateral lower extremity (principal); L97.318 Non-pressure chronic ulcer of right ankle with other specified severity; L97.828 Non-pressure chronic ulcer of other part of left lower leg with other specified severity; L97.818 Non-pressure chronic ulcer of other part of right lower leg with other specified severity; E66.9 Obesity, unspecified; Z68.32 Body mass index [BMI] 32.0-32.9, adult; Z74.09 Other reduced mobility; Z79.01 Long term (current) use of anticoagulants | CPT/HCPCS: G0463 ==

== ENCOUNTER 2019-03-20 15:37 | Inpatient (IN) | payer MEDICARE, BC ==
[~2019-03-20] VITALS: Ht 157.5 cm; Wt 81.6 kg
[2019-03-20] MEDS ORDERED: PIPERACILLIN /TAZOBACTAM 3.375 G in IV D5W 50 ML IV ONE (17:00)
--- NOTE | 2019-03-20 17:28 | NUR ---
CALLED FOR BED, TURNED MOVE SHEET
[2019-03-20] MEDS ORDERED: ATEN25TA PO (17:45)
[2019-03-20 17:54] LABS: CALCIUM, SERUM 9.4 mg/dL (8.5-10.1); CARBON DIOXIDE 29 mmol/L (21-32); CHLORIDE 103 mmol/L (98-107); CREATININE 0.7 mg/dL (0.6-1.3); GLUCOSE 86 mg/dL (74-106); POTASSIUM 4.4 mmol/L (3.5-5.1); SODIUM SERUM 141 mmol/L (136-145); UREA NITROGEN, BLOOD 22 mg/dL (7-18)
[2019-03-20 18:00] LABS: ALANINE AMINOTRANSFERASE 16 U/L (12-78); ALBUMIN 3.2 g/dL (3.4-5.0); ALKALINE PHOSPHATASE 60 U/L (46-116); ASPARTATE AMINOTRANSFERASE 15 U/L (15-37); BILIRUBIN,TOTAL 0.1 mg/dL (0.2-1.0); TOTAL PROTEIN, SERUM 7.7 g/dL (6.4-8.2)
[2019-03-20 18:08] LABS: BASOPHILS # (AUTO) 0.1 /CMM (0.0-0.2); BASOPHILS % (AUTO) 0.7 % (0.0-2.0); EOSINOPHILS % (AUTO) 2.4 % (0.0-6.0); HEMATOCRIT 37 % (33-45); HEMOGLOBIN 12.2 g/dL (11.5-14.8); LYMPHOCYTES # (AUTO) 1.8 /CMM (0.8-4.8); LYMPHOCYTES % (AUTO) 26.5 % (20.0-44.0); MEAN CORPUSCULAR HGB CONC 33 g/dl (31.0-36.0); MEAN CORPUSCULAR VOLUME 87 fL (82-100); MONOCYTES # (AUTO) 0.7 /CMM (0.1-1.30); MONOCYTES % (AUTO) 9.4 % (2.0-12.0); NEUTROPHILS # (AUTO) 4.2 /CMM (1.8-8.9); PLATELET COUNT (AUTO) 268 /CMM (150-450); RED BLOOD CELL COUNT(AUTO) 4.28 MIL/uL (4.0-5.2); WHITE BLOOD COUNT (AUTO) 6.9 K/uL (4.3-11.0)
[2019-03-20] MEDS ORDERED: IV NS 0.9% 1,000 ML IV PRN (18:23)
[2019-03-20] MEDS ORDERED: MORPHINE SULFATE INJ 2 MG/ML DISP.SYRIN IV PRN (18:30)
[2019-03-20] MEDS ORDERED: ONDANSETRON HCL/PF 4 MG/2 ML VIAL IVP PRN (18:30)
[2019-03-20] MEDS ORDERED: Z GUARD REMEDY 2 OZ OINT TP PRN (18:30)
[2019-03-20] MEDS ORDERED: ACETAMINOPHEN 325 MG TABLET PO PRN (18:30)
[2019-03-20] MEDS ORDERED: MAGNESIUM HYDROXIDE 30 ML UDC PO PRN (18:30)
[2019-03-20] MEDS ORDERED: ZOLPIDEM TARTRATE 5 MG TABLET PO PRN (18:30)
[2019-03-20] MEDS ORDERED: MAG HYDROX/AL HYDROX/SIMETH 30 ML UDC PO PRN (18:30)
[2019-03-20] MEDS ORDERED: HYDROCODONE/APAP 5/325MG 1 EACH TABLET PO PRN (18:30)
--- NOTE | 2019-03-20 18:30 | NUR ---
REPORT GIVEN TO KEISHA HASTINGS FOR NIKKIE PT WILL BE TRANSPORTED TO MS 3RD FLOOR
--- NOTE | 2019-03-20 18:32 | NUR ---
RN MS NOTES Received patient on room air, no sob noted, patient denies pain at this time. A/O x4. Patient has bilateral lower leg wounds. Patient has Right arm #20. Patient currently in 313-2, charge nurse aware. Bed at the lowest setting, call light within reach, side rails up x2.
[2019-03-20] MEDS: FUROSEMIDE 40 MG/4 ML VIAL IV SCH (18:59)
--- NOTE | 2019-03-20 18:59 | NUR ---
RN MS NOTES Patient refused lasix at this time, stated that she took the medication at 1000 and does not want to take it again. Patient refused x3
--- NOTE | 2019-03-20 19:10 | NUR ---
MS RN NOTES RECEIVED PT IN BED AWAKE AND ABLE TO MAKE NEEDS KNOWN WITH FAMILY AT BEDSIDE. PT A/O X3 AND ROMANIAN SPEAKING. PT WITH BILATERAL LOWER LEG WOUNDS/REDNESS WELL EDEMA. RESPIRATIONS EVEN AND UNALBORED WITH NO S/S OF ACUTE DISTRESS OR SOB NOTED. NO COMPLAINTS OF PAIN AT THIS TIME. PT WITH RARM #20G PATENT AND INTACT RUNNING NS#75ML/HR. SAFETY MEASURES IN PLACE WITH BED IN LOWEST LOCKED POSITION WITH SIDE RAILS UP X2. CALL LIGHT WITHIN REACH. WILL CONTINUE TO MONITOR.
[2019-03-20] MEDS ORDERED: FEE PK DOSING 1 MIN EA MC ONE (19:16)
[2019-03-20] MEDS ORDERED: CHOLECALCIFEROL 1,000 UNIT TABLET (VIT D3) PO SCH (19:30)
[2019-03-20 20:00] VITALS: BP 112/59
[2019-03-20] MEDS: VANCOMYCIN 1 GM in IV D5W 250 ML IV SCH (20:12)
[2019-03-20] MEDS: BACLOFEN (10 MG) 10 MG TABLET PO SCH (20:12)
[2019-03-20] MEDS: DONEPEZIL 5 MG TABLET PO SCH (21:28)
[2019-03-20] MEDS: DIVALPROEX SODIUM 125 MG CAP.SPRINK PO SCH (21:28)
[2019-03-20] MEDS: CEFEPIME 1 GM in IV D5W 50 ML IV SCH (21:28)
[2019-03-20] MEDS: clonazePAM 0.5 MG TABLET PO SCH (21:28)
[2019-03-21] MEDS ORDERED: PIPERACILLIN /TAZOBACTAM 3.375 G in IV D5W 50 ML IV SCH ×2
[2019-03-21 06:50] LABS: BASOPHILS % (AUTO) 0.7 % (0.0-2.0); EOSINOPHILS % (AUTO) 3.9 % (0.0-6.0); HEMATOCRIT 33 % (33-45); HEMOGLOBIN 10.7 g/dL (11.5-14.8); LYMPHOCYTES # (AUTO) 2.1 /CMM (0.8-4.8); LYMPHOCYTES % (AUTO) 39.2 % (20.0-44.0); MEAN CORPUSCULAR HGB CONC 32 g/dl (31.0-36.0); MEAN CORPUSCULAR VOLUME 86 fL (82-100); MONOCYTES # (AUTO) 0.5 /CMM (0.1-1.30); MONOCYTES % (AUTO) 8.9 % (2.0-12.0); NEUTROPHILS # (AUTO) 2.6 /CMM (1.8-8.9); NEUTROPHILS % (AUTO) 47.3 % (43.0-81.0); PLATELET COUNT (AUTO) 228 /CMM (150-450); RED BLOOD CELL COUNT(AUTO) 3.82 MIL/uL (4.0-5.2); WHITE BLOOD COUNT (AUTO) 5.4 K/uL (4.3-11.0)
--- NOTE | 2019-03-21 06:54 | NUR ---
MS RN NOTES PT IN BED ASLEEP BUT EASILY AWOKEN VERBALLY RO BY TOUCH WITH FAMILY AT BEDSIDE. PT A/O X3 AND WELSH SPEAKING. RESPIRATIONS EVEN AND UNLABORED WITH NO S/S OF ACUTE DISTRESS OR SOB NOTED. NO COMPLAINTS OF PAIN AT THIS TIME. PT KEPT CLEAN, DRY, AND COMFORTABLE. TURNED PT Q2HRS. PT WITH RARM #20G PATENT AND INTACT RUNNING NS#75ML/HR. SAFETY MEASURES IN PLACE WITH BED IN LOWEST LOCKED POSITION WITH SIDE RAILS UP X2. CALL LIGHT WITHIN REACH. WILL ENDORSE TO ONCOMING NURSE FOR NIKKIE.
[2019-03-21 07:01] LABS: ALANINE AMINOTRANSFERASE 16 U/L (12-78); ALBUMIN 2.6 g/dL (3.4-5.0); ALKALINE PHOSPHATASE 44 U/L (46-116); ASPARTATE AMINOTRANSFERASE 11 U/L (15-37); BILIRUBIN,TOTAL 0.2 mg/dL (0.2-1.0); CALCIUM, SERUM 8.6 mg/dL (8.5-10.1); CARBON DIOXIDE 33 mmol/L (21-32); CHLORIDE 105 mmol/L (98-107); CREATININE 0.7 mg/dL (0.6-1.3); GLUCOSE 88 mg/dL (74-106); MAGNESIUM 1.9 mg/dL (1.8-2.4); PHOSPHORUS 3.4 mg/dL (2.5-4.9); POTASSIUM 3.7 mmol/L (3.5-5.1); SODIUM SERUM 142 mmol/L (136-145); TOTAL PROTEIN, SERUM 6.3 g/dL (6.4-8.2); UREA NITROGEN, BLOOD 18 mg/dL (7-18)
--- NOTE | 2019-03-21 07:21 | NUR ---
MS RN NOTES LAB ATTEMPTED TO DRAW BLOOD BUT WAS UNABLE. LAB WILL SEND FROG OR OYSTER FARMWORKER TO RETRY.
--- NOTE | 2019-03-21 07:45 | NUR ---
M/S RN OPENING NOTES RECEIVED PATIENT ON BED, A/O X 3, AWAKE AND ABLE TO MAKE NEEDS KNOWN, MONGOLIAN SPEAKING ONLY. RESPIRATION EVEN AND NON LABORED WITH NO ACUTE RESPIRATORY DISTRESS. ABDOMEN SOFT AND NON DISTENDED WITH ACTIVE BOWEL SOUNDS. SKIN WARM TO TOUCH AND DRY. BOTH LEGS WARMER D/T CELLULITIS, WITH EDEMA, ELEVATED BOTH LEGS AND REMAINED OFF LOAD. DENIES PAIN AND DISCOMFORT. IV SITE AT RIGHT FOREARM RUNNING NS AT 75 ML/HR, NO INFILTRATION NOTED. FAMILY ON BEDSIDE, ALL CONCERNS ADDRESSED. CALL LIGHT WITHIN REACH. WILL CONTINUE TO MONITOR CARE.
[2019-03-21 08:00] VITALS: BP 111/45
[2019-03-21] MEDS: DIVALPROEX SODIUM 125 MG CAP.SPRINK PO SCH ×2 (08:44→21:34)
[2019-03-21] MEDS: CHOLECALCIFEROL 1,000 UNIT TABLET (VIT D3) PO SCH (08:44)
[2019-03-21] MEDS: MULTIPLE VIT (LYCOPENE/FA/MV,CA,IRON,MIN/LUT)1 TAB PO SCH (08:44)
[2019-03-21] MEDS: BACLOFEN (10 MG) 10 MG TABLET PO SCH (08:44)
[2019-03-21] MEDS: CEFEPIME 1 GM in IV D5W 50 ML IV SCH ×2 (08:45→21:34)
[2019-03-21] MEDS: ATENOLOL 25 MG TABLET PO SCH (08:45)
[2019-03-21] MEDS: PAROXETINE HCL 10 MG TABLET PO SCH (08:45)
[2019-03-21] MEDS: FUROSEMIDE 40 MG/4 ML VIAL IV SCH ×2 (08:45→17:02)
[2019-03-21] MEDS: APIXABAN 5 MG TABLET PO SCH ×2 (08:46→17:03)
[2019-03-21] MEDS ORDERED: DIVALPROEX SODIUM 125 MG CAP.SPRINK PO SCH (09:00)
[2019-03-21] MEDS: VANCOMYCIN 1 GM in IV D5W 250 ML IV SCH (13:06)
--- NOTE | 2019-03-21 14:25 | NUR ---
M/S RN NOTES PROVIDED BED BATH TO PATIENT WITH MANAGER ACUTE, IV SITE AT RIGHT WRIST BLED, TENDER TO TOUCH AND LEAKING. CHANGED IV SITE TO LEFT WRIST GAUGE 24, PT TOLERATED PROCEDURE.
[2019-03-21 16:00] VITALS: BP 104/57
--- NOTE | 2019-03-21 18:41 | NUR ---
M/S RN CLOSING NOTES PATIENT A/O X 3, ESTONIAN SPEAKING, RESPONSIVE TO ALL STIMULI, ABLE TO FOLLOW COMMANDS. NO PRESENCE OF SOB. DENIES PAIN AND DISCOMFORT. ABD SOFT AND NON DISTENDED WITH ACTIVE BOWEL SOUNDS, ON DIAPER DUE TO INCONTINENCE OF BOWEL AND BLADDER. SKIN WARM TO TOUCH AND DRY, BOTH LEGS ELEVATED DUE TO EDEMA +1, OFF LOAD HEELS. MEPILEX APPLIED FOR SKIN MAINTENANCE. REPOSITIONED WITH ASSIST. IV SITE AT LEFT WRIST GAUGE 24 AND PATENT IN FLUSHING. ALL CONCERNS ADDRESSED. CALL LIGHT WITHIN REACH. CAREGIVER ON BEDSIDE FOR 24 HOUR CARE. ENDORSED PATIENT CARE TO NEXT SHIFT.
--- NOTE | 2019-03-21 19:10 | NUR ---
MS RN NOTES RECEIVED PT IN BED AWAKE AND ABLE TO MAKE NEEDS KNOWN WITH FAMILY/FRIEND AT BEDSIDE. PT A/O X3 AND KINYARWANDA SPEAKING. RESPIRATIONS EVEN AND UNALBORED WITH NO S/S OF ACUTE DISTRESS OR SOB NOTED. NO COMPLAINTS OF PAIN AT THIS TIME. PT WITH JIMENEZ #24G PATENT AND INTACT. SAFETY MEASURES IN PLACE WITH BED IN LOWEST LOCKED POSITION WITH SIDE RAILS UP X2. CALL LIGHT WITHIN REACH. WILL CONTINUE TO MONITOR.
[2019-03-21 20:00] VITALS: BP 103/63
[2019-03-21] MEDS: DONEPEZIL 5 MG TABLET PO SCH (21:34)
[2019-03-21] MEDS: clonazePAM 0.5 MG TABLET PO SCH (21:34)
--- NOTE | 2019-03-22 00:09 | NUR ---
CHANGED OF PRIMARY NURSE Patient in bed, sleeping, arouses easily. Rwandan speaking, speaks some Irish. Friend at bedside. Bilateral lower leg wound, mepilex in place, awaiting wound consult per report. Patient is on RA, tolerating well, no SOB. Denies pain, instruction to use call light for assistance, verbalized understanding.
--- NOTE | 2019-03-22 06:19 | NUR ---
END OF SHIFT REPORT Patient in bed, stable oxygen saturation on RA. BLE swelling, elevated on pillows. Mepilex foam applied to both lower legs wound, denies pain. Offload heels at all times. On IV abx as scheduled. Had BM this shift, incontinent with urine. Awaiting Podiatry/wound consult. No acute events overnight. Maintained safety.
[2019-03-22 07:10] LABS: BASOPHILS # (AUTO) 0.1 /CMM (0.0-0.2); EOSINOPHILS % (AUTO) 4.6 % (0.0-6.0); HEMATOCRIT 35 % (33-45); HEMOGLOBIN 11.4 g/dL (11.5-14.8); LYMPHOCYTES # (AUTO) 2.1 /CMM (0.8-4.8); LYMPHOCYTES % (AUTO) 36.6 % (20.0-44.0); MEAN CORPUSCULAR HGB CONC 33 g/dl (31.0-36.0); MEAN CORPUSCULAR VOLUME 86 fL (82-100); MONOCYTES # (AUTO) 0.6 /CMM (0.1-1.30); MONOCYTES % (AUTO) 10.4 % (2.0-12.0); NEUTROPHILS # (AUTO) 2.7 /CMM (1.8-8.9); NEUTROPHILS % (AUTO) 47.4 % (43.0-81.0); PLATELET COUNT (AUTO) 236 /CMM (150-450); RED BLOOD CELL COUNT(AUTO) 4.08 MIL/uL (4.0-5.2); WHITE BLOOD COUNT (AUTO) 5.6 K/uL (4.3-11.0)
[2019-03-22 07:20] LABS: CALCIUM, SERUM 8.5 mg/dL (8.5-10.1); CARBON DIOXIDE 32 mmol/L (21-32); CHLORIDE 104 mmol/L (98-107); CREATININE 0.6 mg/dL (0.6-1.3); GLUCOSE 95 mg/dL (74-106); POTASSIUM 3.6 mmol/L (3.5-5.1); SODIUM SERUM 141 mmol/L (136-145); UREA NITROGEN, BLOOD 18 mg/dL (7-18)
--- NOTE | 2019-03-22 07:20 | NUR ---
RECEIVED PATIENT IN BED,AWAKE A/O X 3, CONGOLESE SPEAKING ONLY.FRIEND AT BEDSIDE. RESPIRATION EVEN AND NON LABORED WITH NO DISTRESS NOTED.DENIES PAIN AND DISCOMFORT. IV SITE AT LEFT FOREARM H/L, NO INFILTRATION NOTED. FAMILY ON BEDSIDE. CALL LIGHT WITHIN REACH. WILL CONTINUE TO MONITOR
[2019-03-22] MEDS: VANCOMYCIN 1 GM in IV D5W 250 ML IV SCH (07:34)
[2019-03-22 08:00] VITALS: BP_SYST 108; BP_DIAS 41; BP_DIAS 44
[2019-03-22] MEDS: FUROSEMIDE 40 MG TABLET PO SCH (08:53)
[2019-03-22] MEDS: CHOLECALCIFEROL 1,000 UNIT TABLET (VIT D3) PO SCH (08:53)
[2019-03-22] MEDS: BACLOFEN (10 MG) 10 MG TABLET PO SCH (08:53)
[2019-03-22] MEDS: DIVALPROEX SODIUM 125 MG CAP.SPRINK PO SCH ×2 (08:53→21:54)
[2019-03-22] MEDS: PAROXETINE HCL 10 MG TABLET PO SCH (08:53)
[2019-03-22] MEDS: MULTIPLE VIT (LYCOPENE/FA/MV,CA,IRON,MIN/LUT)1 TAB PO SCH (08:53)
[2019-03-22] MEDS: ATENOLOL 25 MG TABLET PO SCH (08:55)
[2019-03-22] MEDS: CEFEPIME 1 GM in IV D5W 50 ML IV SCH ×2 (09:02→21:54)
[2019-03-22] MEDS: APIXABAN 5 MG TABLET PO SCH ×2 (09:07→16:30)
[2019-03-22 16:00] VITALS: BP 108/49
--- NOTE | 2019-03-22 18:28 | NUR ---
PATIENT IN BED, AWAKE A/OX3 , FAMILY AT BEDSIDE. PATIENT REMAINS STABLE ON ROOM AIR WITH VS AT BASE LINE. IV LINE INTACT AND PATENT H/L. ALL NEEDS ATTENDED. SAFETY PRECAUTIONS IMPLEMENTED, CALL LIGHT WITHIN REACH. WILL ENDORSE TO NEXT SHIFT FOR NIKKIE.
--- NOTE | 2019-03-22 19:24 | NUR ---
MS/RN OPENING NOTES PT RECEIVED AWAKE, SITTING UP IN BED WITH DAUGHTER AT BEDSIDE. PT A/OX3. ON ROOM AIR, BREATHING EVEN AND UNLABORED. DENIES SOB AND PAIN AT THIS TIME. IV TO LFA PATENT AND INTACT. BED IN LOW/LOCKED POSITION WITH CALL LIGHT IN REACH. SIDE RAILS UPX3. WILL CONTINUE TO MONITOR
[2019-03-22 20:00] VITALS: BP 102/54
[2019-03-22 20:44] VITALS: BP 102/54
[2019-03-22] MEDS: clonazePAM 0.5 MG TABLET PO SCH (21:54)
[2019-03-22] MEDS: DONEPEZIL 5 MG TABLET PO SCH (21:54)
[2019-03-23] MEDS: VANCOMYCIN 1 GM in IV D5W 250 ML IV SCH (01:35)
--- NOTE | 2019-03-23 06:04 | NUR ---
MS/RN CLOSING NOTES PT ASLEEP, RESPONSIVE TO NAME. FAMILY MEMBER AT BEDSIDE. REMAINS ON ROOM AIR, BREATHING EVEN AND UNLABORED. NO SOB OR PAIN NOTED DURING SHIFT. NO SIGNIFICANT CHANGES OVERNIGHT. IV TO LFA INFILTRATED DURING SHIFT, IV REMOVED AND ARM ELEVATED /ICE PACK APPLIED. INSERTED NEW IV TO RFA #22. TURNED/REPOSITIONED Q2H, HEELS OFFLOADED AT ALL TIMES. AWAITING WOUND CONSULT. BED REMAINS IN LOW/LOCKED POSITION WITH CALL LIGHT IN REACH, BILAT UPPER SIDE RAILS IN PLACE. SEMI FOWLERS POSITION. WILL ENDORSE TO ONCOMING SHIFT NIKKIE.
[2019-03-23 06:44] LABS: CALCIUM, SERUM 8.5 mg/dL (8.5-10.1); CARBON DIOXIDE 34 mmol/L (21-32); CHLORIDE 101 mmol/L (98-107); CREATININE 0.8 mg/dL (0.6-1.3); GLUCOSE 93 mg/dL (74-106); POTASSIUM 3.6 mmol/L (3.5-5.1); SODIUM SERUM 139 mmol/L (136-145); UREA NITROGEN, BLOOD 22 mg/dL (7-18)
[2019-03-23 06:53] LABS: BASOPHILS # (AUTO) 0.1 /CMM (0.0-0.2); BASOPHILS % (AUTO) 1.1 % (0.0-2.0); EOSINOPHILS % (AUTO) 4.5 % (0.0-6.0); HEMATOCRIT 33 % (33-45); HEMOGLOBIN 10.9 g/dL (11.5-14.8); LYMPHOCYTES # (AUTO) 2.2 /CMM (0.8-4.8); LYMPHOCYTES % (AUTO) 41.6 % (20.0-44.0); MEAN CORPUSCULAR HGB CONC 33 g/dl (31.0-36.0); MEAN CORPUSCULAR VOLUME 86 fL (82-100); MONOCYTES # (AUTO) 0.6 /CMM (0.1-1.30); MONOCYTES % (AUTO) 10.3 % (2.0-12.0); NEUTROPHILS # (AUTO) 2.3 /CMM (1.8-8.9); NEUTROPHILS % (AUTO) 42.5 % (43.0-81.0); PLATELET COUNT (AUTO) 235 /CMM (150-450); RED BLOOD CELL COUNT(AUTO) 3.81 MIL/uL (4.0-5.2); WHITE BLOOD COUNT (AUTO) 5.3 K/uL (4.3-11.0)
[2019-03-23 08:00] VITALS: BP 105/53
--- NOTE | 2019-03-23 08:00 | NUR ---
RN NOTES RECEIVED PATIENT IN THE BED A/O X3 IRISH SPEAKER. PATIENT HAS NO ACUTE RESPIRATORY DISTRESS, V/S STABLE . SEEN PATIENT BY WOUND AND NEW ORDER FOR WOUND DEBRIDEMENT. PATIENT SIGN CONSENT FORM. DEBRIDEMENT DONE BY Dr KIMBALL . PICTURE TAKEN. PATIENT TOLERATED PROCEDURE WELL. REFUSED PAIN AT THIS TIME. ELEVATED BILATERAL LOWER EXTREMITIES. NEEDS ATTENDED AND ANTICIPATED. CALL LIGHT WITHIN TO REACH. HOGSHEAD MAT ASSEMBLER NEXT TO THE BED, CONTINUED MONITORING.,
[2019-03-23] MEDS: ATENOLOL 25 MG TABLET PO SCH (09:00)
[2019-03-23] MEDS: BACLOFEN (10 MG) 10 MG TABLET PO SCH (09:25)
[2019-03-23] MEDS: CHOLECALCIFEROL 1,000 UNIT TABLET (VIT D3) PO SCH (09:25)
[2019-03-23] MEDS: PAROXETINE HCL 10 MG TABLET PO SCH (09:25)
[2019-03-23] MEDS: DIVALPROEX SODIUM 125 MG CAP.SPRINK PO SCH ×2 (09:25→21:23)
[2019-03-23] MEDS: MULTIPLE VIT (LYCOPENE/FA/MV,CA,IRON,MIN/LUT)1 TAB PO SCH (09:25)
[2019-03-23] MEDS: FUROSEMIDE 40 MG TABLET PO SCH (09:25)
[2019-03-23] MEDS: APIXABAN 5 MG TABLET PO SCH ×2 (09:33→16:52)
[2019-03-23] MEDS: CEFEPIME 1 GM in IV D5W 50 ML IV SCH ×2 (09:34→21:22)
--- NOTE | 2019-03-23 11:00 | NUR ---
RN NOTES PATIENT SEEN LISA WOUND CRM CAMPAIGN MANAGER NO NEW ORDER. PATIENT STABLE REFUSED PAIN, ASSIST TURN AND REPOSTION Q 2 HR. INFUSING MAXIPIME 100 ML/HR INTACT ON RIGHT FA. POOLROOM TABLE ATTENDANT NEXT TO THE BED CONTINUED MONITORING.
--- NOTE | 2019-03-23 13:17 | NUR ---
RN NOTES PATIENT STABLE, FIELD SERVICES MANAGER WITH THE PATIENT AT THIS TIME.
--- NOTE | 2019-03-23 15:55 | NUR ---
RN NOTES GET ORDER US DVT BILATERAL LOWER AND UPPER LEGS STUDY, CONTINUED MONITORING. DAUGHTER NEXT TO THE BED, ASSIST TURN AND REPOSTION Q 2 HR.
[2019-03-23 16:00] VITALS: BP 109/52
--- NOTE | 2019-03-23 17:55 | NUR ---
JACKER FEEDER NOTES RECEIVED PATIENT FROM ER 83Y/OLD PATIENT VIETNAMESE SPEAKER FEMALE ON Dx OF SEPSIS TELE. TELE MONITOR ON SR-114/130. PATIENT A/O X3/4 NO ACUTER RESPIRATORY DISTRESS, V/S TAKEN BP- 116/65,P-130,R-25,O2-96NC, T-99 ROOM AIR. BS-145 MG/DL, NO COVERAGE GIVEN BECAUSE REFUSED. PATIENT FEELING COLD COVERED WITH WARM BLANKETS. INFUSING NS AT 75 ML/HR ON LEFT AC AREA INTACT. PATIENT HAS EDEMA BILATERAL LOWER EXTREMITIES AND RED, WARM TO TOUCH, PATIENT HAS SOME WOUNDS FOLLOWING WOUND CENTER FOR DAILY TREATMENT. PATIENT CONTINENT. FAMILY NEXT TO THE BED. UNABLE TO TAKE PICTURE PATIENT REFUSED AT THIS TIME. CALL LIGHT WITHIN TO REACH. CONTINUED MONITORING. Addendum: 03/23/19 at 1944 by JEAN BASS RN RN NOTES WRONG PATIENT EATERIES.
--- NOTE | 2019-03-23 18:30 | NUR ---
RN NOTES PATIENT STABLE ADMINISTERED SCHEDULED MEDICATION V/S STABLE, PATIENT REFUSED PAIN, NEEDS ATTENDED AND ANTICIPATED, ASSIST TURN AND REPOSTION Q 2 HR. PATIENT GETTING DVT ON RIGO US STUDY AT TIS TIME. FAMILY NEXT TO THE BED, CONTINUED MONITORING. ENDORSED ONCOMING NURSE FOLLOW PLAN OF CARE.
--- NOTE | 2019-03-23 19:15 | NUR ---
MS/RN OPENING NOTES PT RECEIVED AWAKE, SITTING UP IN BED. CAREGIVER AT BEDSIDE. ON ROOM AIR, BREATHING EVEN AND UNLABORED. DENIES SOB AND PAIN AT THIS TIME. IV TO RFA PATENT AND INTACT. BLE WRAPPED IN DRESSING AND TEX WRAP, RLE S/P DEBRIDEMENT WITH DR. HERNANDEZ. BED IN LOW/LOCKED POSITION WITH CALL LIGHT IN REACH. BILAT. UPPER SIDE RAILS IN PLACE. WILL CONTINUE TO MONITOR
[2019-03-23 20:00] VITALS: BP 102/47
[2019-03-23] MEDS: DONEPEZIL 5 MG TABLET PO SCH (21:22)
[2019-03-23] MEDS: clonazePAM 0.5 MG TABLET PO SCH (22:00)
[2019-03-24 06:34] LABS: BASOPHILS # (AUTO) 0.1 /CMM (0.0-0.2); BASOPHILS % (AUTO) 1.1 % (0.0-2.0); EOSINOPHILS % (AUTO) 4.4 % (0.0-6.0); HEMATOCRIT 33 % (33-45); HEMOGLOBIN 10.9 g/dL (11.5-14.8); LYMPHOCYTES % (AUTO) 36.2 % (20.0-44.0); MEAN CORPUSCULAR HGB CONC 33 g/dl (31.0-36.0); MEAN CORPUSCULAR VOLUME 86 fL (82-100); MONOCYTES # (AUTO) 0.5 /CMM (0.1-1.30); MONOCYTES % (AUTO) 9.6 % (2.0-12.0); NEUTROPHILS # (AUTO) 2.7 /CMM (1.8-8.9); NEUTROPHILS % (AUTO) 48.7 % (43.0-81.0); PLATELET COUNT (AUTO) 243 /CMM (150-450); WHITE BLOOD COUNT (AUTO) 5.5 K/uL (4.3-11.0)
--- NOTE | 2019-03-24 06:34 | NUR ---
MS/RN CLOSING NOTES PT RESTING COMFORTABLY IN BED. RESPONSIVE TO NAME. REMAINS ON ROOM AIR, BREATHING EVEN AND UNLABORED. DENIES SOB AND PAIN AT THIS TIME. IV TO RFA PATENT AND INTACT. TURNED/REPOSITIONED Q2H, HEELS OFFLOADED AT ALL TIMES. BLE WRAPPED WITH TEX BANDAGE, C/D/I. NO SIGNIFICANT CHANGES OVERNIGHT. BED REMAINS IN LOW/LOCKED POSITION WITH CALL LIGHT IN REACH. BILAT. UPPER MINING ENGINEER RAILS IN PLACE. CAREGIVER REMAINS AT BEDSIDE. WILL ENDORSE TO ONCOMING SHIFT NIKKIE
[2019-03-24 06:51] LABS: CALCIUM, SERUM 8.7 mg/dL (8.5-10.1); CARBON DIOXIDE 33 mmol/L (21-32); CHLORIDE 103 mmol/L (98-107); CREATININE 0.7 mg/dL (0.6-1.3); GLUCOSE 93 mg/dL (74-106); POTASSIUM 3.4 mmol/L (3.5-5.1); SODIUM SERUM 142 mmol/L (136-145); UREA NITROGEN, BLOOD 24 mg/dL (7-18)
--- NOTE | 2019-03-24 07:10 | NUR ---
MS RN NOTES PATIENT IN BED ALERT ORIENTED X 2-3. NO ACUTE DISTRESS NOTED. BREATHING UNLABORED. IV ACCESS PATENT AND INTACT, NO REDNESS OR SWELLING NOTED. BLE DRESSING CLEAN DRY AND INTACT. SAFETY MEASURES IN PLACE. CALL LIGHT WITHIN REACH. WILL CONTINUE TO MONITOR ACCORDINGLY.
[2019-03-24 08:05] VITALS: BP 108/55
[2019-03-24] MEDS: ATENOLOL 25 MG TABLET PO SCH (09:00)
[2019-03-24] MEDS: CEFEPIME 1 GM in IV D5W 50 ML IV SCH (09:05)
[2019-03-24] MEDS: MULTIPLE VIT (LYCOPENE/FA/MV,CA,IRON,MIN/LUT)1 TAB PO SCH (09:06)
[2019-03-24] MEDS: CHOLECALCIFEROL 1,000 UNIT TABLET (VIT D3) PO SCH (09:06)
[2019-03-24] MEDS: DIVALPROEX SODIUM 125 MG CAP.SPRINK PO SCH ×2 (09:07→21:19)
[2019-03-24] MEDS: FUROSEMIDE 40 MG TABLET PO SCH (09:07)
[2019-03-24] MEDS: BACLOFEN (10 MG) 10 MG TABLET PO SCH (09:07)
[2019-03-24] MEDS: PAROXETINE HCL 10 MG TABLET PO SCH (09:08)
[2019-03-24] MEDS: APIXABAN 5 MG TABLET PO SCH ×2 (09:12→17:55)
[2019-03-24] MEDS ORDERED: POTASSIUM CHLORIDE 20 MEQ POWDER PACKET GT SCH (11:30)
--- NOTE | 2019-03-24 14:30 | NUR ---
MS RN NOTES SEEN AND EVALUATED BY DR ZBIGNIEW NO, DRESSING CHANGED DONE.
[2019-03-24 15:53] VITALS: BP 123/61
[2019-03-24] MEDS ORDERED: POTASSIUM CHLORIDE 20 MEQ POWDER PACKET PO ONE ×2 (17:30→18:00)
--- NOTE | 2019-03-24 17:54 | NUR ---
MS RN NOTES CLARIFIED ORDER FOR KLOR CON 2O MEQ GT ORDER WITH DR HEMALATHA MAR, CHANGED TO PO. THEN RECEIVED NEW ORDER TO DC PREVIOUS ORDER FOR KLOR CON 20MEQ CHANGE TO KLOR CON 40 MEQ PO X 1 DOSE, NOTED AND CARRIED OUT.
[2019-03-24] MEDS: LEVOFLOXACIN (500MG) 500 MG TABLET PO SCH (17:56)
--- NOTE | 2019-03-24 19:00 | NUR ---
MS RN NOTES PATIENT IN BED ALERT ORIENTED X 2-3. NO ACUTE DISTRESS NOTED. BREATHING UNLABORED. IV ACCESS PATENT AND INTACT, NO REDNESS OR SWELLING NOTED. BLE DRESSING CLEAN DRY AND INTACT. DUE MEDICATIONS GIVEN, NO ASE NOTED. NEEDS ATTENDED AND ANTICIPATED. REPOSITIONED PER PROTOCOL. SAFETY MEASURES IN PLACE. CALL LIGHT WITHIN REACH. WILL ENDORSE TO NIGHT NURSE FOR CONTINUITY OF CARE.
--- NOTE | 2019-03-24 19:30 | NUR ---
MS GIFTY INITIAL NOTES SEEN PT IN BED SITTING WITH HER DAUGHTER AT THE BEDSIDE. PT SEEMS NOT IN ANY DISCOMFORT , DRESSING ON HER WOUND STILL DRY AND INTACT. HEPLOCK PATENT AND INTACT. NO SIGNS OF ANY DISTRESS NOTED . KEPT HER WARM AND COMFORTABLE AT ALL TIMES. BED ALARM SET FOR SAFETY. PLACE CALL LIGHT AT REACH. WILL CONTINUE MONITORING.
[2019-03-24 20:00] VITALS: BP 109/70
[2019-03-24 20:31] VITALS: BP 109/70
[2019-03-24] MEDS: DONEPEZIL 5 MG TABLET PO SCH (21:19)
[2019-03-24] MEDS: clonazePAM 0.5 MG TABLET PO SCH (21:19)
--- NOTE | 2019-03-25 | NUR ---
ms end matcher notes pt sleeping comfortably in bed without any distress or any discomfort noted. daughter at the bedside sleeping as well. kept her warm and comfortable at all times,. will continue monitoring. place call light at reach.
--- NOTE | 2019-03-25 07:00 | NUR ---
ms shoeshiner closing notes pt remains resting but arouses to touch, denies any pain or any discomfort. stable mandi the night and slept well. all due meds given and all needs met. kept her warm and comfortable at all times. daughter remain at the bedside for safety. endorse to am nurse for continuity of care. place call light at reach.
[2019-03-25 07:37] LABS: BASOPHILS % (AUTO) 0.8 % (0.0-2.0); EOSINOPHILS % (AUTO) 4.1 % (0.0-6.0); HEMATOCRIT 33 % (33-45); HEMOGLOBIN 10.9 g/dL (11.5-14.8); LYMPHOCYTES # (AUTO) 1.5 /CMM (0.8-4.8); LYMPHOCYTES % (AUTO) 32.1 % (20.0-44.0); MEAN CORPUSCULAR HGB CONC 33 g/dl (31.0-36.0); MEAN CORPUSCULAR VOLUME 85 fL (82-100); MONOCYTES # (AUTO) 0.5 /CMM (0.1-1.30); MONOCYTES % (AUTO) 11.1 % (2.0-12.0); NEUTROPHILS # (AUTO) 2.4 /CMM (1.8-8.9); NEUTROPHILS % (AUTO) 51.9 % (43.0-81.0); PLATELET COUNT (AUTO) 221 /CMM (150-450); RED BLOOD CELL COUNT(AUTO) 3.85 MIL/uL (4.0-5.2); WHITE BLOOD COUNT (AUTO) 4.7 K/uL (4.3-11.0)
[2019-03-25 07:38] LABS: CALCIUM, SERUM 8.8 mg/dL (8.5-10.1); CARBON DIOXIDE 31 mmol/L (21-32); CHLORIDE 105 mmol/L (98-107); CREATININE 0.7 mg/dL (0.6-1.3); GLUCOSE 95 mg/dL (74-106); PHOSPHORUS 3.3 mg/dL (2.5-4.9); POTASSIUM 3.9 mmol/L (3.5-5.1); SODIUM SERUM 142 mmol/L (136-145); UREA NITROGEN, BLOOD 23 mg/dL (7-18)
[2019-03-25 08:00] VITALS: BP 101/55
[2019-03-25 08:39] VITALS: BP 104/52
[2019-03-25] MEDS: BACLOFEN (10 MG) 10 MG TABLET PO SCH (08:40)
[2019-03-25] MEDS: DIVALPROEX SODIUM 125 MG CAP.SPRINK PO SCH (08:41)
[2019-03-25] MEDS: LEVOFLOXACIN (500MG) 500 MG TABLET PO SCH (08:41)
[2019-03-25] MEDS: CHOLECALCIFEROL 1,000 UNIT TABLET (VIT D3) PO SCH (08:41)
[2019-03-25] MEDS: MULTIPLE VIT (LYCOPENE/FA/MV,CA,IRON,MIN/LUT)1 TAB PO SCH (08:41)
[2019-03-25] MEDS: FUROSEMIDE 40 MG TABLET PO SCH (08:42)
[2019-03-25] MEDS: PAROXETINE HCL 10 MG TABLET PO SCH (08:42)
[2019-03-25] MEDS: APIXABAN 5 MG TABLET PO SCH (08:43)
[2019-03-25 08:44] VITALS: BP 104/55
[2019-03-25] MEDS: ATENOLOL 25 MG TABLET PO SCH (08:44)
[2019-03-25] MEDS ORDERED: LEVO500T2 PO (14:21)
--- NOTE | 2019-03-25 15:45 | NUR ---
patient cleared for D/C to home with home health by . Patient a/o x4 , bed confined. VS are stable , on room air with saturation 97%. Discharge education and instructions provided to patient's daughter: verbalized understanding. patient will f/u with wound clinic, appointment scheduled for next week. Patient will have home health nurse to come for dressing change every 3rd day as directed. Wound care instructions provided to family. Patients daughter refused discharge pictures. Explained purpose of taking d/c pictures: still refusing. All d/c papers sighed by pt's daughter. Valuable form signed and all belongings with the patient. Prescription provided to pt;s daughter and also sent to pharmacy. Patient safely transferred to the car via her own wheelchair accompanied by ABELARDO Johnson, daughter and friend
== END 2019-03-25 15:50 | disposition home health service (06) | DRG 570 ==
LOC: ER 15:39 → MED 17:56
PROVIDERS: ADMIT Nurse Practitioner Acute Care; ATTEND Nurse Practitioner Acute Care
PROC: 0JBN0ZZ Excision of Right Lower Leg Subcutaneous Tissue and Fascia, Open Approach (ICD-10-PCS; principal; 2019-03-23)
DX: L03.115 Cellulitis of right lower limb (principal); E43 Unspecified severe protein-calorie malnutrition; D68.59 Other primary thrombophilia; E44.1 Mild protein-calorie malnutrition; E87.2 Acidosis; L97.919 Non-pressure chronic ulcer of unspecified part of right lower leg with unspecified severity; I83.209 Varicose veins of unspecified lower extremity with both ulcer of unspecified site and inflammation; L97.929 Non-pressure chronic ulcer of unspecified part of left lower leg with unspecified severity; L03.116 Cellulitis of left lower limb; E86.0 Dehydration; G35 Multiple sclerosis; F32.9 Major depressive disorder, single episode, unspecified; Z79.899 Other long term (current) drug therapy; E87.6 Hypokalemia; Z86.718 Personal history of other venous thrombosis and embolism; Z87.891 Personal history of nicotine dependence; Z79.01 Long term (current) use of anticoagulants; Z74.01 Bed confinement status; Z74.09 Other reduced mobility; F41.9 Anxiety disorder, unspecified; G47.9 Sleep disorder, unspecified; L53.9 Erythematous condition, unspecified; L89.610 Pressure ulcer of right heel, unstageable
CPT/HCPCS: 36415; 71045-TC; 80048-TC; 80053-TC; 80076-TC; 80202-TC; 83605-TC; 83735-TC; 84100-TC; 85025-TC; 85730-TC; 87040-TC; 87070-TC; 87081-TC; 87186-TC; 93970-TC; G0378; J0692; J1940; J2543; J3370; J7030; J7050; J7060

== ENCOUNTER 2019-04-02 13:00 | Outpatient (CLI) | payer MEDICARE, BC ==
[~2019-04-02 13:00] MED LIST changes: -AMOX1TAB15 PO; +ATEN25TA PO; -IBAN150T16 PO; +LEVO500T2 PO; -MELO-105 PO; -RIVA10TA PO
== END 2019-04-02 23:59 | disposition home health service (06) ==
LOC: WOU 13:00
PROVIDERS: ATTEND Podiatrist Foot & Ankle Surgery
DX: I87.311 Chronic venous hypertension (idiopathic) with ulcer of right lower extremity (principal); L97.312 Non-pressure chronic ulcer of right ankle with fat layer exposed; S81.811A Laceration without foreign body, right lower leg, initial encounter; X58.XXXA Exposure to other specified factors, initial encounter; Y92.89 Other specified places as the place of occurrence of the external cause; R23.4 Changes in skin texture; E66.9 Obesity, unspecified; Z68.32 Body mass index [BMI] 32.0-32.9, adult; Z87.891 Personal history of nicotine dependence; G35 Multiple sclerosis
CPT/HCPCS: 11042

== ENCOUNTER 2019-04-20 10:50 | Outpatient (CLI) | payer MEDICARE, BC | END 2019-04-20 23:59 | disposition home health service (06) | LOC: WOU 10:50 | PROVIDERS: ATTEND Podiatrist Foot & Ankle Surgery | DX: I87.311 Chronic venous hypertension (idiopathic) with ulcer of right lower extremity (principal); L97.312 Non-pressure chronic ulcer of right ankle with fat layer exposed; S81.811A Laceration without foreign body, right lower leg, initial encounter; X58.XXXA Exposure to other specified factors, initial encounter; Y92.89 Other specified places as the place of occurrence of the external cause; E66.9 Obesity, unspecified; Z68.32 Body mass index [BMI] 32.0-32.9, adult; Z74.09 Other reduced mobility; Z79.01 Long term (current) use of anticoagulants | CPT/HCPCS: 11042; A6452 ==

== ENCOUNTER → 2019-05-11 | Outpatient (CLI) | payer MEDICARE, BC | END | disposition home health service (06) | LOC: WOU 13:00 | PROVIDERS: ATTEND Podiatrist Foot & Ankle Surgery | DX: I87.311 Chronic venous hypertension (idiopathic) with ulcer of right lower extremity (principal); L97.312 Non-pressure chronic ulcer of right ankle with fat layer exposed; S81.811D Laceration without foreign body, right lower leg, subsequent encounter; X58.XXXD Exposure to other specified factors, subsequent encounter; L89.620 Pressure ulcer of left heel, unstageable; L89.323 Pressure ulcer of left buttock, stage 3; M79.671 Pain in right foot; E66.9 Obesity, unspecified; Z68.32 Body mass index [BMI] 32.0-32.9, adult; Z74.09 Other reduced mobility; Z79.01 Long term (current) use of anticoagulants | CPT/HCPCS: 11042; A6452 ==

== ENCOUNTER 2019-06-09 13:00 | Outpatient (CLI) | payer MEDICARE, BC | END 2019-06-09 23:59 | disposition home or self-care (01) | LOC: VASLAB 13:00 | PROVIDERS: ATTEND Surgery Vascular Surgery | DX: L89.323 Pressure ulcer of left buttock, stage 3 (principal); L89.893 Pressure ulcer of other site, stage 3; S81.811D Laceration without foreign body, right lower leg, subsequent encounter; X58.XXXD Exposure to other specified factors, subsequent encounter; E11.622 Type 2 diabetes mellitus with other skin ulcer; L97.822 Non-pressure chronic ulcer of other part of left lower leg with fat layer exposed; Z79.01 Long term (current) use of anticoagulants | CPT/HCPCS: G0463 ==

== ENCOUNTER 2019-06-11 11:45 | Outpatient (CLI) | payer MEDICARE, BC ==
[~2019-06-11 11:45] MED LIST changes: -CLON0.5T12 PO; +CLON0.5T4 PO
== END 2019-06-11 23:59 | disposition home health service (06) ==
LOC: WOU 11:45
PROVIDERS: ATTEND Podiatrist Foot & Ankle Surgery
DX: I87.313 Chronic venous hypertension (idiopathic) with ulcer of bilateral lower extremity (principal); L97.823 Non-pressure chronic ulcer of other part of left lower leg with necrosis of muscle; L97.812 Non-pressure chronic ulcer of other part of right lower leg with fat layer exposed; L89.610 Pressure ulcer of right heel, unstageable; E66.9 Obesity, unspecified; Z68.32 Body mass index [BMI] 32.0-32.9, adult; G35 Multiple sclerosis
CPT/HCPCS: 11042; 11043; A6197

== ENCOUNTER 2019-06-15 13:10 | Outpatient (CLI) | payer MEDICARE, BC ==
[~2019-06-15 13:10] MED LIST changes: +CLON0.5T12 PO; -CLON0.5T4 PO
== END 2019-06-15 23:59 | disposition home health service (06) ==
LOC: WOU 13:10
PROVIDERS: ATTEND Surgery
DX: L30.4 Erythema intertrigo (principal); Z74.09 Other reduced mobility; E66.9 Obesity, unspecified; E46 Unspecified protein-calorie malnutrition; Z68.32 Body mass index [BMI] 32.0-32.9, adult; G35 Multiple sclerosis; Z79.01 Long term (current) use of anticoagulants
CPT/HCPCS: G0463

== ENCOUNTER 2019-06-18 12:15 | Outpatient (CLI) | payer MEDICARE, BC ==
[~2019-06-18 12:15] MED LIST changes: -CLON0.5T12 PO; +CLON0.5T4 PO
== END 2019-06-18 23:59 | disposition home or self-care (01) ==
LOC: WOU 12:15
PROVIDERS: ATTEND Podiatrist Foot & Ankle Surgery
DX: I87.313 Chronic venous hypertension (idiopathic) with ulcer of bilateral lower extremity (principal); L97.823 Non-pressure chronic ulcer of other part of left lower leg with necrosis of muscle; L97.812 Non-pressure chronic ulcer of other part of right lower leg with fat layer exposed; L89.610 Pressure ulcer of right heel, unstageable; G35 Multiple sclerosis; Z74.09 Other reduced mobility; E66.9 Obesity, unspecified; Z68.32 Body mass index [BMI] 32.0-32.9, adult; J45.909 Unspecified asthma, uncomplicated
CPT/HCPCS: 11042; 11043

== ENCOUNTER 2019-06-22 11:28 | Outpatient (CLI) | payer MEDICARE, BC ==
[~2019-06-22 11:28] MED LIST changes: +CLON0.5T12 PO; -CLON0.5T4 PO
== END 2019-06-22 23:59 | disposition home health service (06) ==
LOC: WOU 11:28
PROVIDERS: ATTEND Podiatrist Foot & Ankle Surgery
DX: I87.313 Chronic venous hypertension (idiopathic) with ulcer of bilateral lower extremity (principal); L97.825 Non-pressure chronic ulcer of other part of left lower leg with muscle involvement without evidence of necrosis; L97.813 Non-pressure chronic ulcer of other part of right lower leg with necrosis of muscle; L89.610 Pressure ulcer of right heel, unstageable; E66.9 Obesity, unspecified; Z68.32 Body mass index [BMI] 32.0-32.9, adult; G35 Multiple sclerosis; Z74.09 Other reduced mobility; Z79.01 Long term (current) use of anticoagulants
CPT/HCPCS: 11042; 11043

== ENCOUNTER 2019-06-29 11:20 | Outpatient (CLI) | payer MEDICARE, BC ==
[~2019-06-29 11:20] MED LIST changes: -CLON0.5T12 PO; +CLON0.5T4 PO
== END 2019-06-29 23:59 | disposition home health service (06) ==
LOC: WOU 11:20
PROVIDERS: ATTEND Podiatrist Foot & Ankle Surgery
DX: I87.313 Chronic venous hypertension (idiopathic) with ulcer of bilateral lower extremity (principal); L97.825 Non-pressure chronic ulcer of other part of left lower leg with muscle involvement without evidence of necrosis; L97.813 Non-pressure chronic ulcer of other part of right lower leg with necrosis of muscle; L89.610 Pressure ulcer of right heel, unstageable; S91.111D Laceration without foreign body of right great toe without damage to nail, subsequent encounter; X58.XXXD Exposure to other specified factors, subsequent encounter; G35 Multiple sclerosis; E66.9 Obesity, unspecified; Z68.32 Body mass index [BMI] 32.0-32.9, adult; Z74.09 Other reduced mobility; Z79.01 Long term (current) use of anticoagulants
CPT/HCPCS: 11042; 11043

== ENCOUNTER 2019-07-06 11:20 | Outpatient (CLI) | payer MEDICARE, BC ==
[~2019-07-06 11:20] MED LIST changes: +CLON0.5T12 PO; -CLON0.5T4 PO
== END 2019-07-06 23:59 | disposition home health service (06) ==
LOC: WOU 11:20
PROVIDERS: ATTEND Podiatrist Foot & Ankle Surgery
DX: I87.313 Chronic venous hypertension (idiopathic) with ulcer of bilateral lower extremity (principal); L97.825 Non-pressure chronic ulcer of other part of left lower leg with muscle involvement without evidence of necrosis; L97.813 Non-pressure chronic ulcer of other part of right lower leg with necrosis of muscle; L89.610 Pressure ulcer of right heel, unstageable; S91.111D Laceration without foreign body of right great toe without damage to nail, subsequent encounter; W18.30XD Fall on same level, unspecified, subsequent encounter; G35 Multiple sclerosis; E66.9 Obesity, unspecified; Z68.32 Body mass index [BMI] 32.0-32.9, adult; Z74.09 Other reduced mobility; Z79.01 Long term (current) use of anticoagulants
CPT/HCPCS: 11043